=== PATIENT | female | born 2000 | race Caucasian/White ===

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

== ENCOUNTER 2020-03-07 15:44 | Emergency (ER) | payer OTHER ==
[2020-03-07 16:15] LABS: BASOPHILS # (AUTO) 0.1 10^3/uL (0.0-0.1); BASOPHILS % (AUTO) 0.8 %; EOSINOPHILS # (AUTO) 0.1 10^3/uL (0.0-0.7); HGB - HEMOGLOBIN 14.2 g/dL (12.0-16.0); LYMPHOCYTES # (AUTO) 2.4 10^3/uL (1.5-3.5); LYMPHOCYTES % (AUTO) 27.4 %; MEAN CORPUSCULAR HEMOGLOBIN 30.6 pg (27.0-31.0); MEAN CORPUSCULAR HGB CONC 34.5 g/dL (32.0-36.0); MEAN CORPUSCULAR VOLUME 88.6 fL (81.0-99.0); MEAN PLATELET VOLUME 8.9 fL (7.9-10.8); MONOCYTES # (AUTO) 0.6 10^3/uL (0.0-1.0); MONOCYTES % (AUTO) 7.3 %; NEUTROPHILS # (AUTO) 5.6 10^3/uL (1.5-6.6); NEUTROPHILS % (AUTO) 63.2 %; PLT - PLATELET COUNT 319 10^3/uL (130-450); RED BLOOD COUNT 4.64 10^6/uL (4.20-5.40); RED CELL DISTRIBUTION WIDTH 12.3 % (12.0-15.0); WHITE BLOOD COUNT 8.8 x10^3/uL (4.8-10.8)
[2020-03-07] MEDS ORDERED: SODIUM CHLORIDE 0.9% 1,000 ML IV ONE ×2 (16:17→20:02)
[2020-03-07] MEDS ORDERED: ONDANSETRON 4 MG/2 ML VIAL IVP STA ×2 (16:17→20:00)
[2020-03-07] MEDS ORDERED: MORPHINE 2 MG/ML CARPUJECT IVP STA (16:17)
[2020-03-07 16:29] LABS: ALBUMIN 4.3 g/dL (3.2-5.5); ALBUMIN/GLOBULIN RATIO 1.3 (1.0-2.2); BILIRUBIN,TOTAL 0.6 mg/dL (0.2-1.0); CALCIUM 9.1 mg/dL (8.5-10.3); CREATININE 0.7 mg/dL (0.4-1.0); TOTAL PROTEIN 7.5 g/dL (6.7-8.2)
[2020-03-07 16:30] LABS: BILIRUBIN,URINE NEGATIVE (NEGATIVE); GLUCOSE, URINE (UA) NEGATIVE (NEGATIVE); KETONES,URINE (UA) NEGATIVE (NEGATIVE); LEUKOCYTE ESTERASE, URINE NEGATIVE (NEGATIVE); NITRITE,URINE NEGATIVE (NEGATIVE); OCCULT BLOOD,URINE MODERATE (NEGATIVE); PROTEIN,URINE NEGATIVE (NEGATIVE); UROBILINOGEN,URINE 0.2 (NORMAL) E.U./dL (NORMAL)
[2020-03-07 16:33] LABS: CLARITY,URINE CLEAR (CLEAR)
[2020-03-07 16:41] LABS: BACTERIA,URINE Rare /HPF (None Seen); HCG UR QUAL NEGATIVE; SQUAMOUS EPITHELIAL CELL,UR MANY Squamous (<= Few)
--- NOTE | 2020-03-07 16:45 | ED Physician Documentation ---
History of Present Illness - Stated complaint Stated Complaint: ABD PX, VOMITING, FEVER - Chief complaint Chief Complaint: Abd Pain - History obtained from History obtained from: Patient - History of Present Illness Timing: Yesterday Pain level max: 9 Pain level now: 9 - Additonal information Additional information: 19-year-old female presents the emergency department with right-sided lower abdominal/pelvic pain. Started yesterday and has continually worsened. Worse with movement and better with rest. Has not taken anything for the pain. No fever. Is having vaginal spotting. LMP was approximately 5 weeks ago. She states that she does have irregular menses. She is not currently on control. She is sexually active. No fevers. No nausea or vomiting. 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 HEENT: None Psych: None Musculoskeletal: None Derm: None - Past Surgical History Past Surgical History: No - Present Medications Home Medications: Ambulatory Orders Medication Instructions Recorded Confirmed HYDROcod/ACETAM 5/325 [Vicodin 1 - 2 ea PO Q6H PRN 12/14/13 12/14/13 5/325] SUMAtriptan [Imitrex] 25 mg PO DAILY PRN 12/14/13 12/14/13 HYDROcod/ACETAM 5/325 [[place] 5/325] 1 - 2 ea PO Q6H PRN #15 tablet 12/15/15 LORazepam [Ativan] 0.5 mg PO Q6H PRN #15 tablet 01/09/16 Propranolol [Inderal] 10 mg PO DAILY 01/09/16 01/09/16 Hydrocodone/Acetaminophen 1 - 2 each PO Q6H PRN #10 tablet 10/02/18 [Hydrocodon-Acetaminophen 5-325] Ondansetron Odt [Zofran] 4 mg TL Q6H PRN #10 tablet 03/07/20 Oxycodone HCl 5 - 10 mg PO Q6H PRN #10 tablet 03/07/20 metroNIDAZOLE [Flagyl] 500 mg PO BID #14 tablet 03/07/20 - Allergies Allergies/Adverse Reactions: Allergies Allergy/AdvReac Type Severity Reaction Status Date / Time No Known Drug Allergies Allergy Verified 03/07/20 15:54 - Social History Does the pt smoke?: No Smoking Status: Never smoker Does the pt drink ETOH?: Yes Does the pt have substance abuse?: Yes - Immunizations Immunizations are current?: Yes - POLST Patient has POLST: No PD ED PE NORMAL - Vitals Vital signs reviewed: Yes - General General: Alert and oriented X 3, Well developed/nourished, Other (Appears uncomfortable) - HEENT HEENT: PERRL, Moist mucous membranes - Neck Neck: Supple, no meningeal sign - Cardiac Cardiac: RRR, No murmur, Strong equal pulses - Respiratory Respiratory: No respiratory distress, Clear bilaterally - Abdomen Abdomen: Soft, Non distended, Other (Diffusely tender to palpation across the lower abdomen. Mostly tender in the right lower quadrant. No peritoneal s igns.) - Female Female : Sp[place] Box present, Other (Initially declined, on reevaluation. She has mild cervical motion tenderness. Mild discharge. Clear.) - Back Back: No CVA TTP, No spinal TTP - Derm Derm: Warm and dry - Extremities Extremities: No edema, No calf tenderness / cord - Neuro Neuro: Alert and oriented X 3 - Psych Psych: Normal mood, Normal affect Results - Vitals Vitals: Vital Signs - 24 hr 03/07/20 03/07/20 03/07/20 15:54 16:38 18:00 Temperature 36.9 C 36.8 C Heart Rate 81 81 71 Respiratory 17 14 15 Rate Blood Pressure 130/97 H 107/77 112/76 O2 Saturation 98 100 100 03/07/20 03/07/20 03/07/20 19:17 20:01 20:43 Temperature Heart Rate 58 L Respiratory 17 18 17 Rate Blood Pressure 119/90 H O2 Saturation 100 03/07/20 03/07/20 21:10 21:15 Temperature Heart Rate 54 L Respiratory 17 17 Rate Blood Pressure 123/65 O2 Saturation 99 Oxygen O2 Source Room air - Labs Labs: Laboratory Tests 03/07/20 03/07/20 03/07/20 16:07 16:08 16:08 WBC 8.8 RBC 4.64 Hgb 14.2 Hct 41.1 MCV 88.6 MCH 30.6 MCHC 34.5 RDW 12.3 Plt Count 319 MPV 8.9 Neut # (Auto) 5.6 Lymph # (Auto) 2.4 [place] # (Auto) 0.6 Eos # (Auto) 0.1 Baso # (Auto) 0.1 Absolute Nucleated RBC 0.00 Nucleated RBC % 0.0 Sodium 139 Potassium 3.9 Chloride 107 Carbon Dioxide 23 Anion Gap 9.0 BUN 10 Creatinine 0.7 Estimated GFR (MDRD) 108 Glucose 90 Calcium 9.1 Total Bilirubin 0.6 AST 19 ALT 15 Alkaline Phosphatase 63 Total Protein 7.5 Albumin 4.3 Globulin 3.2 Albumin/Globulin Ratio 1.3 Lipase 31 HCG, Quant Urine Color YELLOW Urine Clarity CLEAR Urine pH 6.0 Ur Specific [place] 1.015 Urine Protein NEGATIVE Urine Glucose (UA) NEGATIVE Urine Ketones NEGATIVE Urine Occult Blood MODERATE H Urine Nitrite NEGATIVE Urine Bilirubin NEGATIVE Urine Urobilinogen 0.2 (NORMAL) Ur Leukocyte Esterase NEGATIVE Urine RBC 6-10 H Urine WBC 4-5 Ur Squamous Epith Cells MANY Squamous H Urine Bacteria Rare Ur Microscopic Review INDICATED Urine Culture Comments NOT INDICATED Urine HCG, Qual NEGATIVE C. glabrata (PCR) C. krusei (PCR) Tricia species DNA T. vaginalis (PCR) Bact Vaginosis (PCR) 03/07/20 03/07/20 16:09 19:05 WBC RBC Hgb Hct MCV MCH MCHC RDW Plt Count MPV Neut # (Auto) Lymph # (Auto) [place] # (Auto) Eos # (Auto) Baso # (Auto) Absolute Nucleated RBC Nucleated RBC % Sodium Potassium Chloride Carbon Dioxide Anion Gap BUN Creatinine Estimated GFR (MDRD) Glucose Calcium Total Bilirubin AST ALT Alkaline Phosphatase Total Protein Albumin Globulin Albumin/Globulin Ratio Lipase HCG, Quant < 0.60 Urine Color Urine Clarity Urine pH Ur Specific Caret Urine Protein Urine Glucose (UA) Urine Ketones Urine Occult Blood Urine Nitrite Urine Bilirubin Urine Urobilinogen Ur Leukocyte Esterase Urine RBC Urine WBC Ur Squamous Epith Cells Urine Bacteria Ur Microscopic Review Urine Culture Comments Urine HCG, Qual C. glabrata (PCR) NEGATIVE C. krusei (PCR) NEGATIVE Tricia species DNA NEGATIVE T. vaginalis (PCR) NEGATIVE Bact Vaginosis (PCR) NEGATIVE - Rads (name of study) Pelvic ultrasound Radiology: Prelim report reviewed, EMP read contemporaneously, See rad report (Normal) CT abdomen pelvis Radiology: Prelim report reviewed, EMP read contemporaneously, See rad report (Normal) PD MEDICAL DECISION MAKING - ED course Complexity details: reviewed results, re-evaluated patient, considered differential, d/w patient ED course: Unclear etiology of the patient's symptoms. Given Rocephin and azithromycin for possible gonorrhea and/or chlamydia. If her chlamydia is positive, I would consider giving her a 14-day course of doxycycline. Also given Flagyl for possible bacterial vaginitis. These test results will not be immediately available tonight, nor will be gonorrhea and Chlamydia testing. No acute findings on ultrasound. No evidence of ovarian torsion. Normal CT of the abdomen pelvis. We will have her follow-up closely with her doctor for further care. Pain well controlled. Patient counseled regarding signs and symptoms for which I believe and urgent re-evaluation would be necessary. Patient with good understanding of and agreement to plan and is comfortable going home at this time This document was made in part using voice recognition software. While efforts are made to proofread this document, sound alike and grammatical errors may occur. Departure - Departure Disposition: 01 Home, Self Care Clinical Impression: Pelvic pain Vaginitis Qualifiers: Chronicity: acute Qualified Code(s): N76.0 - Acute vaginitis Abdominal pain Qualifiers: Abdominal location: unspecified location Qualified Code(s): R10.9 - Unspecified abdominal pain Condition: Good Instructions: ED Pelvic Pain [facility]O, ED Vaginosis Bacterial Follow-Up: VERONICA ST [Primary Care Provider] - Within 1 week Prescriptions: metroNIDAZOLE [Flagyl] 500 mg PO BID #14 tablet Ondansetron Odt [Zofran] 4 mg TL Q6H PRN #10 tablet PRN Reason: Nausea / Vomiting Oxycodone HCl 5 - 10 mg PO Q6H PRN #10 tablet PRN Reason: pain Comments: Take all antibiotics until gone. Return if you worsen. Follow-up with your doctor for further care. Discharge Date/Time: 03/07/20 21:25
--- NOTE | 2020-03-07 17:47 | Ultrasound Report ---
Reason: pelvic pain, R Procedure Date: 03/07/2020 Accession Number: [id number] / [id number] Procedure: US - Pelvic w/Transvag+Doppler Comp CPT Code: Final Report FULL RESULT: EXAM: PELVIC ULTRASOUND WITH DOPPLERS CLINICAL HISTORY: Pelvic pain, left greater than right. COMPARISON: ABDOMEN/PELVIS W/ 10/02/2018 8:35 PM TECHNIQUE: Realtime transabdominal imaging performed to identify the uterus and adnexa and as an overview of other pelvic structures, with static image documentation. Transvaginal scanning refused. Color flow imaging and Doppler spectral analysis was performed to evaluate blood flow to the ovaries given pelvic pain and clinical concern for ovarian torsion. FINDINGS: Uterus: 6.5 x 2.8 x 4.6 cm, volume 44.1 cc. Anteverted position. Normal overall size and echotexture. Masses: None. Endometrium: 5 mm. Normal. Cervix: Unremarkable. Right Ovary: 3.8 x 1.9 x 1.6 cm, volume 6.2 cc. Normal echotexture. Arterial and venous blood flow are present. PSV 11.9 cm/sec. RI 0.6. Adnexa are unremarkable. Left Ovary: 3.3 x 1.4 x 2.3 cm, volume 5.4 cc. Normal echotexture. Arterial and venous blood flow are present. PSV 13.3 cm/sec. RI 0.7. Adnexa are unremarkable. Free Fluid: None. Other: None. IMPRESSION: 1. Normal transabdominal pelvic ultrasound. 2. Arterial and venous blood flow are present to the ovaries bilaterally. RADIA
[2020-03-07] MEDS ORDERED: KETOROLAC 30 MG/ML VIAL IVP STA (17:54)
[2020-03-07] MEDS ORDERED: IOVERSOL 320 100 ML VIAL IVP ONE ×2 (18:11→18:26)
--- NOTE | 2020-03-07 18:39 | CT Report ---
Reason: RLQ abd pain Procedure Date: 03/07/2020 Accession Number: [id number] / [id number] Procedure: CT - Abdomen/Pelvis W CPT Code: Final Report FULL RESULT: EXAM: CT ABDOMEN AND PELVIS EXAM DATE: 03/07/2020 06:24 PM. CLINICAL HISTORY: RLQ abd pain. COMPARISONS: ABDOMEN/PELVIS W/ 10/02/2018 8:35 PM. TECHNIQUE: Routine helical CT imaging was performed through the abdomen and pelvis. IV contrast: OPTIRAY 320. Enteric contrast: No. Reconstructions: Coronal and sagittal. In accordance with CT protocol optimization, one or more of the following dose reduction techniques were utilized for this exam: automated exposure control, adjustment of mA and/or KV based on patient size, or use of iterative reconstructive technique. FINDINGS: Lung Bases: Unremarkable. Liver: Periportal edema with no focal lesions. Gallbladder/Bile Ducts: Unremarkable. Spleen: Normal. Pancreas: Normal. Adrenal Glands: Normal. Kidneys: Normal. No masses or hydronephrosis. Peritoneal Cavity/Bowel: Normal. No free fluid, free air or adenopathy. No masses or acute inflammatory process. The appendix images normally.. Pelvic Organs: Normal. The bladder and visualized pelvic organs are within normal limits. Vasculature: No aneurysms or other significant abnormality. Bones: No significant abnormality. Other: None. IMPRESSION: 1. The appendix images normally. 2. No bowel obstruction or inflammatory process associated with the bowel. 3. Periportal edema is nonspecific but can be seen in the setting of acute hepatitis. Correlate clinically. RADIA
[2020-03-07] MEDS ORDERED: HYDROmorphone 1 MG/ML CARPUJECT IVP STA (18:53)
[2020-03-07] MEDS ORDERED: cefTRIAXone 1 GM VIAL IVP STA (19:33)
[2020-03-07] MEDS ORDERED: AZITHROMYCIN 250 MG TABLET PO STA (19:33)
[2020-03-07] MEDS ORDERED: metroNIDAZOLE 250 MG TABLET PO STA (19:33)
[2020-03-07] MEDS ORDERED: oxyCODONE 5 MG TABLET PO STA (20:11)
[2020-03-07 21:11] VITALS: BP 123/65
[2020-03-07 21:18] LABS: CANDIDA GROUP DNA NEGATIVE (NEGATIVE); CANDIDA KRUSEI DNA NEGATIVE (NEGATIVE); TRICHOMONAS VAGINALIS DNA NEGATIVE (NEGATIVE)
[2020-03-07 22:45] LABS: TRICHOMONAS VAGINALIS DNA NEGATIVE (NEGATIVE)
== END 2020-03-07 21:25 | disposition home or self-care (01) ==
LOC: ED 15:44
DX: R10.2 Pelvic and perineal pain (principal); N76.0 Acute vaginitis; R10.9 Unspecified abdominal pain
CPT/HCPCS: 36415; 74177; 76830; 76856; 80053; 81001; 81025; 83690; 84702; 85025; 87481; 87491; 87591; 87661; 87801; 93975; 96361; 96374; 96375; 96376; 99284; A9270; J1170; Q9967; 81003; 87086; 87210

== ENCOUNTER 2021-02-12 17:14 | Emergency (ER) | payer OTHER ==
--- OUTSIDE RECORDS SUMMARY | 2021-02-12 17:17 | EXTERNAL MEDICAL SUMMARY RPT | Continuity of Care Document ---
:2000 Demographics Phone Unavailable Preferred Language Unknown Marital Status Unknown Bahai Affiliation Unknown Race Unknown Ethnic Group Unknown Author Organization [place] Address [address] [place] [address] Phone Care Team Providers Name Role Phone PA-C Unavailable Unavailable Problems date description facility [id number] Abdominal pain, unspecified site All [id number] Acute abdominal pain All [id number] Alcohol intake All [id number] Alcohol use All [id number] Details of drug misuse behavior All [id number] Never smoker All [id number] Tobacco smoking status NHIS All 20210212 Unspecified abdominal pain All Medications date description facility [id number] RIZATRIPTAN BENZOATE All 20210212 RIZATRIPTAN BENZOATE All Vital Signs date measurement value source 20210212 BMI 22.17 kg/m2 20210212 BP_diastolic 85 mm[Hg] [id number] BP_systolic 145 mm[Hg] 86521770 heart_rate 101 /min 20210212 height_metric 157.48 cm 20210212 height_standard 62 in 20210212 respiration_rate 17 /min 20210212 temperature_metric 36.44 C 20210212 temperature_standard 97.6 F [id number] weight_metric 54.79 kg [id number] weight_standard 120.8 lb Social History date description facility [id number]
[2021-02-12 17:34] LABS: BILIRUBIN,URINE NEGATIVE (NEGATIVE); GLUCOSE, URINE (UA) NEGATIVE (NEGATIVE); KETONES,URINE (UA) NEGATIVE (NEGATIVE); LEUKOCYTE ESTERASE, URINE NEGATIVE (NEGATIVE); NITRITE,URINE NEGATIVE (NEGATIVE); OCCULT BLOOD,URINE NEGATIVE (NEGATIVE); PROTEIN,URINE NEGATIVE (NEGATIVE); UROBILINOGEN,URINE 0.2 (NORMAL) E.U./dL (NORMAL)
--- OUTSIDE RECORDS SUMMARY | 2021-02-12 17:34 | EXTERNAL MEDICAL SUMMARY RPT | Continuity of Care Document ---
:2000 Demographics Phone Unavailable Preferred Language Unknown Marital Status Unknown Advent Affiliation Unknown Race Unknown Ethnic Group Unknown Author Organization [facility] Address [address] [place] [address] Phone Care Team Providers Name Role Phone LIZZ, Kole Juarez, Unavailable Unavailable Problems date description facility [id number] Abdominal pain, unspecified site All [id number] Acute abdominal pain All [id number] Alcohol intake All [id number] Alcohol use All [id number] Details of drug misuse behavior All [id number] Never smoker All [id number] Tobacco smoking status NHIS All 20210212 Unspecified abdominal pain All Medications date description facility 20210212 R[facility]ATRIPT[facility] BENZOATE All 20210212 RIZATRIPT[facility] BENZOATE All Vital Signs date measurement value source 20210212 BMI 22.17 kg/m2 [id number] BP_diastolic 85 mm[Hg] 30155028 BP_systolic 145 mm[Hg] 93283533 heart_rate 101 /min [id number] height_metric 157.48 cm 20210212 height_standard 62 in [id number] respiration_rate 17 /min 20210212 temperature_metric 36.44 C 20210212 temperature_standard 97.6 F 20210212 weight_metric 54.79 kg 23828093 weight_standard 120.8 lb Social History date description facility [id number]
[2021-02-12 17:35] LABS: CLARITY,URINE CLOUDY (CLEAR); HCG UR QUAL POSITIVE
[2021-02-12 17:41] LABS: RBC,URINE 0-5 /HPF (0-5); SQUAMOUS EPITHELIAL CELL,UR RARE Squamous (<= Few); WBC,URINE 0-3 /HPF (0-5)
[2021-02-12 17:42] LABS: AMORPHOUS SEDIMENT,UR Marked /LPF; BACTERIA,URINE None Seen /HPF (None Seen)
[2021-02-12 17:49] LABS: BASOPHILS # (AUTO) 0.1 10^3/uL (0.0-0.1); BASOPHILS % (AUTO) 0.6 %; EOSINOPHILS # (AUTO) 0.1 10^3/uL (0.0-0.7); EOSINOPHILS % (AUTO) 0.8 %; HCT - HEMATOCRIT 41.3 % (37.0-47.0); LYMPHOCYTES # (AUTO) 2.5 10^3/uL (1.5-3.5); LYMPHOCYTES % (AUTO) 26.8 %; MEAN CORPUSCULAR HGB CONC 33.9 g/dL (32.0-36.0); MEAN CORPUSCULAR VOLUME 91.6 fL (81.0-99.0); MEAN PLATELET VOLUME 8.8 fL (7.9-10.8); MONOCYTES # (AUTO) 0.9 10^3/uL (0.0-1.0); MONOCYTES % (AUTO) 9.9 %; NEUTROPHILS # (AUTO) 5.8 10^3/uL (1.5-6.6); NEUTROPHILS % (AUTO) 61.6 %; PLT - PLATELET COUNT 301 10^3/uL (130-450); RED BLOOD COUNT 4.51 10^6/uL (4.20-5.40); RED CELL DISTRIBUTION WIDTH 11.9 % (12.0-15.0); WHITE BLOOD COUNT 9.5 x10^3/uL (4.8-10.8)
[2021-02-12 18:02] LABS: ALBUMIN 4.3 g/dL (3.2-5.5); ALBUMIN/GLOBULIN RATIO 1.4 (1.0-2.2); BILIRUBIN,TOTAL 0.7 mg/dL (0.2-1.0); CALCIUM 9.3 mg/dL (8.5-10.3); CREATININE 0.6 mg/dL (0.4-1.0); POTASSIUM 3.6 mmol/L (3.5-5.0); TOTAL PROTEIN 7.4 g/dL (6.7-8.2)
--- NOTE | 2021-02-12 18:32 | ED Physician Documentation ---
History of Present Illness - Stated complaint Stated Complaint: CRAMPING - Chief complaint Chief Complaint: Abd Pain - History obtained from History obtained from: Patient - Additonal information Additional information: Patient comes emergency department chief complaint of lower abdominal cramping, worse on the right side, for the last few days. Patient states that she gets a sharp pain that she feels more on the right than the left and then it seems to pulsate after that. Patient states that her last period was sometime in December, though she is not sure exactly when. She is known to be and has had a positive test. She denies any fevers or chills. She has been nauseated and vomiting. No dysuria. She has some midline back pain which she has noticed over the last few days, as well. No vaginal bleeding. She has had more of her normal discharge but otherwise no unusual discharge. Patient states she is otherwise healthy and this is her first . She has not yet had an ultrasound. Review of Systems Ten Systems: 10 systems reviewed and negative Constitutional: reports: Reviewed and negative Eyes: reports: Reviewed and negative Ears: reports: Reviewed and negative Nose: reports: Reviewed and negative Throat: reports: Reviewed and negative Cardiac: reports: Reviewed and negative Respiratory: reports: Reviewed and negative GI: reports: Abdominal Pain, Nausea, Vomiting : reports: Reviewed and negative Skin: reports: Reviewed and negative Musculoskeletal: reports: Reviewed and negative Neurologic: reports: Reviewed and negative Psychiatric: reports: Reviewed and negative Endocrine: reports: Reviewed and negative Immunocompromised: reports: Reviewed and negative PD PAST MEDICAL HISTORY - Past Medical History Cardiovascular: None Respiratory: None Neuro: Migraines Endocrine/Autoimmune: None GI: None 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 : None HEENT: None Psych: None Musculoskeletal: None Derm: None - Past Surgical History Past Surgical History: No - Present Medications Home Medications: Ambulatory Orders Medication Instructions Recorded Confirmed HYDROcod/ACETAM 5/325 [Vicodin 1 - 2 ea PO Q6H PRN 12/14/13 12/14/13 5/325] SUMAtriptan [Imitrex] 25 mg PO DAILY PRN 12/14/13 12/14/13 HYDROcod/ACETAM 5/325 [[place] 5/325] 1 - 2 ea PO Q6H PRN #15 tablet 12/15/15 LORazepam [Ativan] 0.5 mg PO Q6H PRN #15 tablet 01/09/16 Propranolol [Inderal] 10 mg PO DAILY 01/09/16 01/09/16 Hydrocodone/Acetaminophen 1 - 2 each PO Q6H PRN #10 tablet 10/02/18 [Hydrocodon-Acetaminophen 5-325] Ondansetron Odt [Zofran] 4 mg TL Q6H PRN #10 tablet 03/07/20 Oxycodone HCl 5 - 10 mg PO Q6H PRN #10 tablet 03/07/20 metroNIDAZOLE [Flagyl] 500 mg PO BID #14 tablet 03/07/20 Ondansetron Odt [Zofran] 4 mg TL Q6H PRN #10 tablet 02/12/21 168/Iron/Folic/Omega3 1 each PO DAILY #30 02/12/21 [One-A-Day -1 Softgel] - Allergies Allergies/Adverse Reactions: Allergies Allergy/AdvReac Type Severity Reaction Status Date / Time No Known Drug Allergies Allergy Verified 03/07/20 15:54 - Social History Does the pt smoke?: No Smoking Status: Never smoker Does the pt drink ETOH?: Yes Does the pt have substance abuse?: Yes - Immunizations Immunizations are current?: Yes - POLST Patient has POLST: No PD ED PE NORMAL - Vitals Vital signs reviewed: Yes - General General: Alert and oriented X 3, No acute distress - HEENT HEENT: Atraumatic, PERRL, EOMI, Moist mucous membranes - Neck Neck: Supple, no meningeal sign - Cardiac Cardiac: RRR, No murmur, Strong equal pulses - Respiratory Respiratory: No respiratory distress, Clear bilaterally - Abdomen Abdomen: Soft, Non distended, Other (Mild right pelvic tenderness. No tenderness at McBurney's point. 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 Moderate amount of white nonmalodorous discharge in vaginal canal. No vaginal or cervical lesions. No external lesions. No vaginal bleeding. No cervical motion tenderness or left adnexal tenderness. Mild right adnexal tenderness noted. No mass.) - Back Back: No CVA TTP, No spinal TTP - Derm Derm: Normal color, Warm and dry, No rash - Extremities Extremities: No deformity, No edema, No calf tenderness / cord - Neuro Neuro: Alert and oriented X 3, policy intern 2-12 intact, Normal speech, Other (Otherwise grossly normal.) - Psych Psych: Normal mood, Normal affect Results - Vitals Vitals: Vital Signs - 24 hr 02/12/21 02/12/21 02/12/21 17:18 19:08 19:16 Temperature 36.5 C Heart Rate 82 65 68 Respiratory 16 15 15 Rate Blood Pressure 119/52 L 115/76 O2 Saturation 100 100 98 02/12/21 02/12/21 20:28 21:11 Temperature Heart Rate 70 68 Respiratory 15 16 Rate Blood Pressure 107/72 O2 Saturation 99 99 Oxygen O2 Source Room air - Labs Labs: Laboratory Tests 02/12/21 02/12/21 02/12/21 17:28 17:33 17:33 WBC 9.5 RBC 4.51 Hgb 14.0 Hct 41.3 MCV 91.6 MCH 31.0 MCHC 33.9 RDW 11.9 L Plt Count 301 MPV 8.8 Neut # (Auto) 5.8 Lymph # (Auto) 2.5 [place] # (Auto) 0.9 Eos # (Auto) 0.1 Baso # (Auto) 0.1 Absolute Nucleated RBC 0.00 Nucleated RBC % 0.0 Sodium 134 L Potassium 3.6 Chloride 99 L Carbon Dioxide 26 Anion Gap 9.0 BUN 8 Creatinine 0.6 Estimated GFR (MDRD) 127 Glucose 88 Calcium 9.3 Total Bilirubin 0.7 AST 20 ALT 15 Alkaline Phosphatase 64 Total Protein 7.4 Albumin 4.3 Globulin 3.1 Albumin/Globulin Ratio 1.4 Lipase 26 HCG, Quant Urine Color YELLOW Urine Clarity CLOUDY Urine pH 8.0 H Ur Specific [place] 1.020 Urine Protein NEGATIVE Urine Glucose (UA) NEGATIVE Urine Ketones NEGATIVE Urine Occult Blood NEGATIVE Urine Nitrite NEGATIVE Urine Bilirubin NEGATIVE Urine Urobilinogen 0.2 (NORMAL) Ur Leukocyte Esterase NEGATIVE Urine RBC 0-5 Urine WBC 0-3 Ur Squamous Epith Cells RARE Squamous Amorphous Sediment Marked Urine Bacteria None Seen Ur Microscopic Review INDICATED Urine Culture Comments NOT INDICATED Urine HCG, Qual POSITIVE Chlam trachomat DNA PCR N.gonorrhoeae DNA (PCR) T. vaginalis (PCR) Blood Type 02/12/21 02/12/21 02/12/21 17:33 17:40 18:30 WBC RBC Hgb Hct MCV MCH MCHC RDW Plt Count MPV Neut # (Auto) Lymph # (Auto) [place] # (Auto) Eos # (Auto) Baso # (Auto) Absolute Nucleated RBC Nucleated RBC % Sodium Potassium Chloride Carbon Dioxide Anion Gap BUN Creatinine Estimated GFR (MDRD) Glucose Calcium Total Bilirubin AST ALT Alkaline Phosphatase Total Protein Albumin Globulin Albumin/Globulin Ratio Lipase HCG, Quant 94608.00 Urine Color Urine Clarity Urine pH Ur Specific [place] Urine Protein Urine Glucose (UA) Urine Ketones Urine Occult Blood Urine Nitrite Urine Bilirubin Urine Urobilinogen Ur Leukocyte Esterase Urine RBC Urine WBC Ur Squamous Epith Cells Amorphous Sediment Urine Bacteria Ur Microscopic Review Urine Culture Comments Urine HCG, Qual Chlam trachomat DNA PCR NEGATIVE N.gonorrhoeae DNA (PCR) NEGATIVE T. vaginalis (PCR) NEGATIVE Blood Type O POSITIVE - Rads (name of study) OB US Radiology: Final report received, EMP read indepedently, See rad report (5w5d fetus with gestational sac; no heartbeat appreciated) PD MEDICAL DECISION MAKING - ED course Complexity details: reviewed results, re-evaluated patient, considered differential, d/w patient ED course: The patient's exam overall was fairly reassuring, but I did feel she should be worked up for her pelvic pain in consideration of early . Urine test was positive. I did also obtain urinalysis, quantitative hCG, and OB ultrasound. hCG seemed appropriate at around 24,000. OB ultrasound showed a 5-week 5-day size fetus and sac within the uterus; however, heartbeat was unable to be visualized. Radiologist did note that there is perhaps the e nidia age of the fetus that is the reason for the heartbeat not being visible. I discussed the findings with the patient and the possibility of miscarriage. We have discussed that the patient will need to set up expedited follow-up when the clinic opens and follow-up either with her primary doctor or with OB, better yet. Patient expresses understanding. We have discussed the usual indications for return. Departure - Departure Disposition: 01 Home, Self Care Clinical Impression: First trimester , Corpus luteum cyst of right ovary Condition: Stable Instructions: ED Care Prescriptions: 168/Iron/Folic/Omega3 [One-A-Day -1 Softgel] 1 each PO DAILY #30 Ondansetron Odt [Zofran] 4 mg TL Q6H PRN #10 tablet PRN Reason: Nausea / Vomiting Comments: Your ultrasound shows that is over 5 weeks in size. There is also a related cyst of the right ovary, which may be causing your pain. Your is in the uterus, but at this time, a heart rate has not been detected on the fetus. It is possible that this is because this is a fairly early , but it is a finding that should be followed up very closely, as the heartbeat should begin to be detectable At this stage or slightly earlier. Please make an appointment with your OB specialist to be seen in the next week for reevaluation. If you begin to have vaginal bleeding, it is most likely a sign that a miscarriage is occurring. In the meantime, please take the Zofran for nausea and the vitamins as prescribed. Discharge Date/Time: 02/12/21 21:22
--- NOTE | 2021-02-12 20:12 | Ultrasound Report ---
PROCEDURE: OB First Trimester INDICATIONS: early ; right lower pain OUTSIDE/PRIOR DATING DATA: Last menstrual period (LMP): Unsure. First dating scan (date and location): 02/12/2021. Estimated date of delivery (MOLLY) from first dating scan: 10/10/2021. TECHNIQUE: Real-time scanning was performed of the fetus and maternal pelvic organs, with image documentation. COMPARISON: None. FINDINGS: Embryo: There is an intrauterine gestational sac with a yolk sac and small pole identified. Th e mean gestational sac diameter measures up to 1.08 cm corresponding to a gestational age of 5 weeks 6 days. The crown-rump length measures up to 0.23 cm corresponding to gestational age of 5 weeks 5 da ys. No discrete heart motion identified, with evaluation limited by small size of the drew e. No discrete. Gestational subchorionic hematoma identified. Measurement variability in dating: +/- 4 weeks by LMP, +/- 7 days by mean sac diameter (use before 6 weeks gestation if crown-rump length not able to be measured), +/- 5 days by crown-rump length (6-12 weeks gestation). Maternal organs: Ovaries measure up to 2.9 x 1.8 x 2.5 cm on the right and 2.2 x 1.5 x 1.2 cm on the left. No adnexal masses identified. There is a thick-walled cyst in the right ovary measuring up to 1.6 cm compatible with a corpus luteal cyst. IMPRESSION: 1. Single intrauterine with a calculated gestational age of 5 weeks 5 days by crown-rump le ngth. No heart motion is identified which may be due to early gestational age. Recommend contin ued clinical follow-up and a short-term repeat study if indicated. 2. Probable corpus luteal cyst in the right ovary. Reviewed by: Henry Gallegos MD on 02/12/2021 8:11 PM PDT Approved by: Henry Gallegos MD on 02/12/2021 8:11 PM PDT Station ID: [id number]
[2021-02-12 20:29] VITALS: BP 107/72
[2021-02-12 22:25] LABS: CHLAMYDIA TRACHOMATIS DNA NEGATIVE (NEGATIVE); NEISSERIA GONORRHOEAE DNA NEGATIVE (NEGATIVE); TRICHOMONAS VAGINALIS DNA NEGATIVE (NEGATIVE)
--- NOTE | 2021-02-12 22:33 | Ultrasound Report ---
PROCEDURE: OB Transvaginal INDICATIONS: early ; right lower quadrant pain OUTSIDE/PRIOR DATING DATA: Last menstrual period (LMP): Unsure. First dating scan (date and location): 02/12/2021. Estimated date of delivery (MOLLY) from first dating scan: 10/10/2021. TECHNIQUE: Real-time scanning was performed of the fetus and maternal pelvic organs, with image documentation. COMPARISON: None. FINDINGS: Embryo: There is an intrauterine gestational sac with a yolk sac and small pole identified. Th e mean gestational sac diameter measures up to 1.08 cm corresponding to a gestational age of 5 weeks 6 days. The crown-rump length measures up to 0.23 cm corresponding to gestational age of 5 weeks 5 da ys. No discrete heart motion identified, with evaluation limited by small size of the drew e. No discrete. Gestational subchorionic hematoma identified. Measurement variability in dating: +/- 4 weeks by LMP, +/- 7 days by mean sac diameter (use before 6 weeks gestation if crown-rump length not able to be measured), +/- 5 days by crown-rump length (6-12 weeks gestation). Maternal organs: Ovaries measure up to 2.9 x 1.8 x 2.5 cm on the right and 2.2 x 1.5 x 1.2 cm on the left. No adnexal masses identified. There is a thick-walled cyst in the right ovary measuring up to 1.6 cm compatible with a corpus luteal cyst. IMPRESSION: 1. Single intrauterine with a calculated gestational age of 5 weeks 5 days by crown-rump le ngth. No heart motion is identified which may be due to early gestational age. Recommend contin ued clinical follow-up and a short-term repeat study if indicated. 2. Probable corpus luteal cyst in the right ovary. Reviewed by: Henry Gallegos MD on 02/12/2021 10:32 PM PDT Approved by: Henry Gallegos MD on 02/12/2021 10:32 PM PDT Station ID: [id number]
== END 2021-02-12 21:22 | disposition home or self-care (01) ==
LOC: ED 17:14
DX: O34.81 Maternal care for other abnormalities of pelvic organs, first trimester (principal); N83.11 Corpus luteum cyst of right ovary; Z3A.01 Less than 8 weeks gestation of pregnancy
CPT/HCPCS: 36415; 80053; 81001; 81003; 81025; 83690; 84702; 85025; 86900; 86901; 87086; 87491; 87591; 87661; 99284

== ENCOUNTER 2021-03-06 13:25 | Emergency (ER) | payer OTHER ==
--- OUTSIDE RECORDS SUMMARY | 2021-03-06 13:29 | EXTERNAL MEDICAL SUMMARY RPT | Continuity of Care Document ---
:2000 Demographics Phone Unavailable Preferred Language Unknown Marital Status Unknown Mandaeism Affiliation Unknown Race Unknown Ethnic Group Unknown Author Organization [facility] Address [address] [place] [address] Phone Care Team Providers Name Role Phone PA-C Unavailable Unavailable Problems date description facility 20210212 Unspecified abdominal pain All 20210212 Tobacco smoking status NHIS All 20210212 Never smoker All 20210212 Details of drug misuse behavior All 20210212 Alcohol use All 20210212 Alcohol intake All 20210212 Acute abdominal pain All 20210212 Abdominal pain, unspecified site All Medications date description facility 20210212 RIZATRIPTAN BENZOATE All 20210212 RIZATRIPTAN BENZOATE All Vital Signs date measurement value source 20210212 weight_standard 120.8 lb 20210212 weight_metric 54.79 kg 20210212 temperature_standard 97.6 F 20210212 temperature_metric 36.44 C 20210212 respiration_rate 17 /min 20210212 height_standard 62 in 20210212 height_metric 157.48 cm 20210212 heart_rate 101 /min 20210212 BP_systolic 145 mm[Hg] 66501464 BP_diastolic 85 mm[Hg] 20210212 BMI 22.17 kg/m2 Social History date description facility [id number]
--- OUTSIDE RECORDS SUMMARY | 2021-03-06 13:33 | EXTERNAL MEDICAL SUMMARY RPT | Continuity of Care Document ---
:2000 Demographics Phone Unavailable Preferred Language Unknown Marital Status Unknown Christian Affiliation Unknown Race Unknown Ethnic Group Unknown Author Organization [facility] Address [address] [place] [address] Phone Care Team Providers Name Role Phone LIZZ, Kole Juarez, Unavailable Unavailable Problems date description facility 20210212 Unspecified abdominal pain All 20210212 Tobacco smoking status NHIS All [id number] Never smoker All 44502667 Details of drug misuse behavior All 51805261 Alcohol use All 36127499 Alcohol intake All 21740273 Acute abdominal pain All 35705886 Abdominal pain, unspecified site All Medications date description facility 20210212 RIZATRIPTAN BENZOATE All 20210212 RIZATRIPTAN BENZOATE All Vital Signs date measurement value source 20210212 weight_standard 120.8 lb 20210212 weight_metric 54.79 kg 20210212 temperature_standard 97.6 F 20210212 temperature_metric 36.44 C 20210212 respiration_rate 17 /min 20210212 height_standard 62 in 20210212 height_metric 157.48 cm 51820549 heart_rate 101 /min 20210212 BP_systolic 145 mm[Hg] 23722576 BP_diastolic 85 mm[Hg] 20210212 BMI 22.17 kg/m2 Social History date description facility [id number]+0000
[2021-03-06] MEDS ORDERED: FOLIC ACID INJ 1 MG in SODIUM CHLORIDE 0.9% 1,000 ML IV STA (13:47)
[2021-03-06] MEDS ORDERED: LACTATED RINGERS 1,000 ML IV STA (13:47)
[2021-03-06] MEDS ORDERED: METOCLOPRAMIDE 10 MG/2 ML VIAL IVP STA (13:47)
[2021-03-06] MEDS ORDERED: THIAMINE INJ 100 MG in SODIUM CHLORIDE 0.9% 50 ML IV STA (13:47)
[2021-03-06] MEDS ORDERED: SODIUM CHLORIDE 0.9% 1,000 ML IV STA (13:47)
--- NOTE | 2021-03-06 13:48 | ED Physician Documentation ---
History of Present Illness - Stated complaint Stated Complaint: VOMITING - Chief complaint Chief Complaint: Neuro - History obtained from History obtained from: Patient - Additonal information Additional information: 20 yo G1 at 9 weeks gestation who presents with ongoing vomiting for the last 2 weeks. She was prescribed Zofran which is unhelpful. Despite that is vomiting every day. Starting yesterday she started to have dizzy spells and has passed out twice. She also had bloody flecks in the emesis today. She denies bleeding but she does have some mild pelvic pain. She was seen here at approximately 5 weeks gestation, ultrasound showed IUP at 5 weeks 5 days without heartbeat at that time. Review of Systems Constitutional: reports: Fatigue. denies: Fever, Chills Cardiac: denies: Chest pain / pressure, Palpitations Respiratory: denies: Dyspnea, Cough GI: reports: Nausea, Vomiting. 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 : None HEENT: None Psych: None Musculoskeletal: None Derm: None - Past Surgical History Past Surgical History: No - Present Medications Home Medications: Ambulatory Orders Medication Instructions Recorded Confirmed 168/Iron/Folic/Omega3 1 each PO DAILY #30 02/12/21 03/06/21 [One-A-Day -1 Softgel] Metoclopramide [Reglan] 10 mg PO Q6H PRN #20 tablet 03/06/21 - Allergies Allergies/Adverse Reactions: Allergies Allergy/AdvReac Type Severity Reaction Status Date / Time No Known Drug Allergies Allergy Verified 03/06/21 13:29 - Social History Does the pt smoke?: No Smoking Status: Never smoker Does the pt drink ETOH?: Yes Does the pt have substance abuse?: Yes - Immunizations Immunizations are current?: Yes - POLST Patient has POLST: No PD ED PE NORMAL - Vitals Vital signs reviewed: Yes - General General: Alert and oriented X 3, No acute distress - HEENT HEENT: PERRL, EOMI - Neck Neck: Supple, no meningeal sign, No bony TTP - Cardiac Cardiac: RRR, No murmur - Respiratory Respiratory: No respiratory distress, Clear bilaterally - Abdomen Abdomen: Normal bowel sounds, Soft, Non tender - Female Female : Other (Bedside ultrasound demonstrates single live intrauterine , HR 160, CRL = 8w3d) - Back Back: No CVA TTP, No spinal TTP - Derm Derm: Normal color, Warm and dry - Extremities Extremities: No edema, No calf tenderness / cord - Neuro Neuro: Alert and oriented X 3, Normal speech Results - Vitals Vitals: Vital Signs - 24 hr 03/06/21 03/06/21 03/06/21 13:30 14:04 14:30 Temperature 36.7 C Heart Rate 83 65 77 Respiratory 19 19 27 H Rate Blood Pressure 129/79 131/61 H 104/68 O2 Saturation 100 98 99 03/06/21 03/06/21 03/06/21 15:00 15:50 16:00 Temperature Heart Rate 63 69 68 Respiratory 16 16 18 Rate Blood Pressure 130/76 115/72 115/72 O2 Saturation 94 98 95 03/06/21 16:41 Temperature 36.9 C Heart Rate Respiratory Rate Blood Pressure O2 Saturation Oxygen O2 Source Room air - EKG (time done) 1348 Rate: Rate (enter#) (73) Rhythm: NSR [place]: Normal Intervals: Normal [place] QRS: Normal Ischemia: Normal ST segments Computer interpretation: Agree with computer - Labs Labs: Laboratory Tests 03/06/21 03/06/21 13:57 13:57 WBC 9.4 RBC 4.52 Hgb 14.2 Hct 40.7 MCV 90.0 MCH 31.4 H MCHC 34.9 RDW 11.6 L Plt Count 317 MPV 9.0 Neut # (Auto) 5.8 Lymph # (Auto) 2.2 [place] # (Auto) 0.7 Eos # (Auto) 0.7 Baso # (Auto) 0.1 Absolute Nucleated RBC 0.00 Nucleated RBC % 0.0 Sodium 136 Potassium 3.6 Chloride 102 Carbon Dioxide 22 Anion Gap 12.0 BUN 8 Creatinine 0.7 Estimated GFR (MDRD) 107 Glucose 99 Calcium 9.5 Magnesium 1.8 Total Bilirubin 0.7 AST 15 ALT 16 Alkaline Phosphatase 45 Total Protein 7.3 Albumin 4.3 Globulin 3.0 Albumin/Globulin Ratio 1.4 PD MEDICAL DECISION MAKING - ED course ED course: 20-year-old woman with syncope in associated with 2 weeks of vomiting without relief from Zofran. Presume given obvious IUP and no free fluid and lack of EKG findings of the syncope is just due to severe dehydration and she was feeling better and not feeling orthostatic after the administration of IV fluids. She also had significant relief of her nausea with IV Reglan. Departure - Departure Disposition: 01 Home, Self Care Clinical Impression: First trimester , Hyperemesis gravidarum Syncope Qualifiers: Syncope type: unspecified Qualified Code(s): R55 - Syncope and collapse Condition: Good Record reviewed to determine appropriate education?: Yes Instructions: ED Preg Morning Sickness Prescriptions: Metoclopramide [Reglan] 10 mg PO Q6H PRN #20 tablet PRN Reason: nausea or headache Comments: Follow-up with OB as scheduled. Return if worse. Forms: Activity restrictions Discharge Date/Time: 03/06/21 16:40
[2021-03-06 14:04] LABS: BASOPHILS # (AUTO) 0.1 10^3/uL (0.0-0.1); BASOPHILS % (AUTO) 0.6 %; EOSINOPHILS # (AUTO) 0.7 10^3/uL (0.0-0.7); EOSINOPHILS % (AUTO) 6.9 %; HCT - HEMATOCRIT 40.7 % (37.0-47.0); HGB - HEMOGLOBIN 14.2 g/dL (12.0-16.0); LYMPHOCYTES # (AUTO) 2.2 10^3/uL (1.5-3.5); LYMPHOCYTES % (AUTO) 23.5 %; MEAN CORPUSCULAR HEMOGLOBIN 31.4 pg (27.0-31.0); MEAN CORPUSCULAR HGB CONC 34.9 g/dL (32.0-36.0); MONOCYTES # (AUTO) 0.7 10^3/uL (0.0-1.0); NEUTROPHILS # (AUTO) 5.8 10^3/uL (1.5-6.6); NEUTROPHILS % (AUTO) 61.9 %; PLT - PLATELET COUNT 317 10^3/uL (130-450); RED BLOOD COUNT 4.52 10^6/uL (4.20-5.40); RED CELL DISTRIBUTION WIDTH 11.6 % (12.0-15.0); WHITE BLOOD COUNT 9.4 x10^3/uL (4.8-10.8)
[2021-03-06 14:14] LABS: ALBUMIN 4.3 g/dL (3.2-5.5); ALBUMIN/GLOBULIN RATIO 1.4 (1.0-2.2); BILIRUBIN,TOTAL 0.7 mg/dL (0.2-1.0); CALCIUM 9.5 mg/dL (8.5-10.3); CREATININE 0.7 mg/dL (0.4-1.0); MAGNESIUM 1.8 mg/dL (1.7-2.8); POTASSIUM 3.6 mmol/L (3.5-5.0); TOTAL PROTEIN 7.3 g/dL (6.7-8.2)
[2021-03-06 15:50] VITALS: BP 115/72
== END 2021-03-06 16:40 | disposition home or self-care (01) ==
LOC: ED 13:25
DX: O21.1 Hyperemesis gravidarum with metabolic disturbance (principal); O99.891 Other specified diseases and conditions complicating pregnancy; R55 Syncope and collapse; Z3A.09 9 weeks gestation of pregnancy
CPT/HCPCS: 36415; 80053; 83735; 85025; 93005; 96365; 96367; 96375; 99284; J2765; J3411; J7040; J7120

== ENCOUNTER 2021-04-09 08:00 | Outpatient (CLI) | payer OTHER ==
[2021-04-10 20:42] LABS: CHLAMYDIA TRACHOMATIS DNA NEGATIVE (NEGATIVE); NEISSERIA GONORRHOEAE DNA NEGATIVE (NEGATIVE); TRICHOMONAS VAGINALIS DNA NEGATIVE (NEGATIVE)
== END 2021-04-09 23:59 ==
LOC: LAB.WC 08:00
PROVIDERS: ATTEND Obstetrics & Gynecology
DX: Z36.89 Encounter for other specified antenatal screening (principal)
CPT/HCPCS: 87491; 87591; 87661

== ENCOUNTER 2021-05-20 10:13 | Outpatient (CLI) | payer OTHER ==
[2021-05-20 10:42] LABS: BASOPHILS # (AUTO) 0.1 10^3/uL (0.0-0.1); BASOPHILS % (AUTO) 0.5 %; EOSINOPHILS # (AUTO) 0.1 10^3/uL (0.0-0.7); HCT - HEMATOCRIT 37.1 % (37.0-47.0); HGB - HEMOGLOBIN 12.7 g/dL (12.0-16.0); LYMPHOCYTES # (AUTO) 1.9 10^3/uL (1.5-3.5); LYMPHOCYTES % (AUTO) 19.2 %; MEAN CORPUSCULAR HEMOGLOBIN 30.6 pg (27.0-31.0); MEAN CORPUSCULAR HGB CONC 34.2 g/dL (32.0-36.0); MEAN CORPUSCULAR VOLUME 89.4 fL (81.0-99.0); MEAN PLATELET VOLUME 9.1 fL (7.9-10.8); MONOCYTES # (AUTO) 0.6 10^3/uL (0.0-1.0); MONOCYTES % (AUTO) 5.5 %; NEUTROPHILS # (AUTO) 7.4 10^3/uL (1.5-6.6); NEUTROPHILS % (AUTO) 73.4 %; PLT - PLATELET COUNT 238 10^3/uL (130-450); RED BLOOD COUNT 4.15 10^6/uL (4.20-5.40)
[2021-05-20 11:13] LABS: THYROID STIMULATING HORMONE 1.63 uIU/mL (0.34-5.60)
[2021-05-21 13:12] LABS: HIV AG/AB 4TH GEN NON-REACTIVE (NON-REACTIVE)
[2021-05-21 13:27] LABS: HEPATITIS B SURFACE ANTIGEN NON-REACTIVE (NON-REACTIVE); HEPATITIS C ANTIBODY NON-REACTIVE (NON-REACTIVE)
== END 2021-05-20 10:14 | disposition home or self-care (01) ==
LOC: LAB 10:13
PROVIDERS: ATTEND Obstetrics & Gynecology
DX: O99.419 Diseases of the circulatory system complicating pregnancy, unspecified trimester (principal); R00.2 Palpitations; Z36.89 Encounter for other specified antenatal screening
CPT/HCPCS: 36415; 84443; 85025; 86592; 86762; 86787; 86803; 86850; 86900; 86901; 87340; 87389

== ENCOUNTER 2021-05-26 15:16 | Outpatient (CLI) | payer OTHER ==
--- NOTE | 2021-05-27 11:20 | Ultrasound Report ---
PROCEDURE: OB Detailed Eval INDICATIONS: SUPERVISION OF NORMAL OUTSIDE/PRIOR DATING DATA: Last menstrual period (LMP): Not available. LMP-based estimated date of delivery (MOLLY): Not available. First dating scan (date and location): 02/12/2021. Estimated date of delivery (MOLLY) from first dating scan: 10/10/2021. The below data below was generated using the above MOLLY of 10/10/2021 TECHNIQUE: Real-time scanning was performed of the fetus, with image documentation and biometric measurements. Endovaginal scanning: Not needed COMPARISON: 02/12/2021 OB ultrasound FINDINGS: General: A single living intrauterine gestation is present. Presentation: Variable Placenta: Placental position is anterior, without previa. Amniotic fluid index: 13.2 cm, normal for gestational age. heart rate: 135 beats per minute. Maternal cervical canal: 5.4 cm long; normal length is 2.5 cm or more. biometrics: Biparietal diameter: 4.7 cm, 20 weeks 1 day Head circumference: 17.8 cm, 20 weeks 2 days Abdominal circumference: 16.4 cm, 21 weeks 3 days Femur length: 3.1 cm, 19 weeks 4 days Estimated gestational age from initial scan: 20 weeks 3 days. Composite gestational age from present scan: 20 weeks 1 day Estimated weight and percentile: 361 g, 52nd percentile Measurement variability in biometric dating: +/- 10 days from 12-20 weeks gestation, +/- 2 weeks from 20-30 weeks gestation, +/- 3 weeks at 30 weeks gestation or later. Anatomic survey: Neuro: Ventricles are normal at less than 10 mm. Cisterna magna is normal at 3-11 mm. Cerebellum i s normal in size and morphology. Nuchal skin fold: Normal at less than 6 mm between 14 and 20 weeks gestational age. Face: Nose and lips, facial profile are not well seen.. Spine: No evidence for spina bifida. Heart: 4-chambered heart is present, with normal ventricular outflow tracts. Diaphragm: Diaphragm is intact. Stomach: Left-sided stomach is present. Kidneys: No hydronephrosis. Normal is less than 5 mm in 2nd trimester, less than 7 mm in 3rd trimester. Cord: 3 vessel cord has orthotopic insertion. Bladder: Normal in size. Extremities: All 4 extremities are visualized. IMPRESSION: Appropriate interval growth, no anomaly seen. The facial profile was poorly visualized du e to positioning and if clinically desired follow-up by 1-2 week follow-up completion of the fe isabela anatomic survey could be performed utilizing limited OB ultrasound. Reviewed by: Gordo Lopez MD on 05/27/2021 11:18 AM PDT Approved by: Gordo Lopez MD on 05/27/2021 11:18 AM PDT Station ID: [id number]
== END 2021-05-26 15:17 | disposition home or self-care (01) ==
LOC: DI 15:16
PROVIDERS: ATTEND Obstetrics & Gynecology
DX: Z34.00 Encounter for supervision of normal first pregnancy, unspecified trimester (principal)

== ENCOUNTER 2021-07-17 10:34 | Outpatient (CLI) | payer OTHER ==
[2021-07-17 11:47] LABS: HCT - HEMATOCRIT 38.4 % (37.0-47.0); HGB - HEMOGLOBIN 13.3 g/dL (12.0-16.0); MEAN CORPUSCULAR HEMOGLOBIN 31.3 pg (27.0-31.0); MEAN CORPUSCULAR HGB CONC 34.6 g/dL (32.0-36.0); MEAN CORPUSCULAR VOLUME 90.4 fL (81.0-99.0); MEAN PLATELET VOLUME 9.2 fL (7.9-10.8); RED BLOOD COUNT 4.25 10^6/uL (4.20-5.40); RED CELL DISTRIBUTION WIDTH 12.3 % (12.0-15.0); WHITE BLOOD COUNT 11.2 x10^3/uL (4.8-10.8)
== END 2021-07-17 10:35 | disposition home or self-care (01) ==
LOC: LAB 10:34
PROVIDERS: ATTEND Obstetrics & Gynecology
DX: Z36.89 Encounter for other specified antenatal screening (principal)
CPT/HCPCS: 36415; 82950; 85027

== ENCOUNTER 2021-07-28 14:17 | Outpatient (CLI) | payer OTHER ==
--- NOTE | 2021-07-28 16:42 | Ultrasound Report ---
PROCEDURE: OB F/U or Repeat INDICATIONS: SUPERVISION OF NORMAL , FAS FOLLOW UP OUTSIDE/PRIOR DATING DATA: Last menstrual period (LMP): Unknown. LMP-based estimated date of delivery (MOLLY): Unknown. First dating scan (date and location): 02/12/2021. Estimated date of delivery (MOLLY) from first dating scan: 10/10/2021. The below data below was generated using the ultrasound MOLLY of 10/10/2021 TECHNIQUE: Real-time scanning was performed of the fetus, with image documentation and biometric measurements. COMPARISON: OB ultrasound 05/26/2021, 02/12/2021 FINDINGS: General: A single living intrauterine gestation is present. Presentation: Vertex Placenta: Placental position is anterior, without previa. Amniotic fluid index: 13.2 cm, normal for gestational age. Largest pocket 4.9 cm. heart rate: 132 beats per minute. Maternal cervical canal: 4.1 cm long; normal length is 2.5 cm or more. biometrics: Estimated gestational age from initial scan: 29 weeks 3 days Other: Repeat images of the facial profile/nose and lips are within normal limits. Previously noted m arginal cord insertion has resolved with distance now measuring 4.3 cm. IMPRESSION: 1. Single live intrauterine with normal visualization of facial profile/nose and lips. 2. Previously noted marginal cord insertion has resolved. Reviewed by: Beth Cabezas MD on 07/28/2021 4:41 PM PDT Approved by: Beth Cabezas MD on 07/28/2021 4:41 PM PDT Station ID: [id number]
== END 2021-07-28 14:18 | disposition home or self-care (01) ==
LOC: DI 14:17
PROVIDERS: ATTEND Obstetrics & Gynecology
DX: Z34.03 Encounter for supervision of normal first pregnancy, third trimester (principal)

== ENCOUNTER 2021-08-14 12:53 | Outpatient (CLI) | payer MEDICAID, OTHER ==
[2021-08-14 18:09] LABS: HGB - HEMOGLOBIN 13.4 g/dL (12.0-16.0); MEAN CORPUSCULAR HEMOGLOBIN 29.9 pg (27.0-31.0); MEAN CORPUSCULAR HGB CONC 32.7 g/dL (32.0-36.0); MEAN CORPUSCULAR VOLUME 91.5 fL (81.0-99.0); MEAN PLATELET VOLUME 10.3 fL (7.9-10.8); RED BLOOD COUNT 4.48 10^6/uL (4.20-5.40); RED CELL DISTRIBUTION WIDTH 12.5 % (12.0-15.0); WHITE BLOOD COUNT 12.4 x10^3/uL (4.8-10.8)
[2021-08-14 19:20] LABS: % IRON SATURATION 10 % (20-50); IRON 57 ug/dL (28-170); TOTAL IRON BINDING CAPACITY 598 ug/dL (250-450); TRANSFERRIN 427 mg/dL (192-382)
== END 2021-08-14 23:59 | disposition home or self-care (01) ==
LOC: LAB.WCP 12:53
PROVIDERS: ATTEND Obstetrics & Gynecology
DX: O99.019 Anemia complicating pregnancy, unspecified trimester (principal); O26.819 Pregnancy related exhaustion and fatigue, unspecified trimester
CPT/HCPCS: 36415; 82728; 83540; 84466; 85025; 85027

== ENCOUNTER 2021-09-09 11:34 | Outpatient (CLI) | payer MEDICAID ==
[2021-09-09 12:02] LABS: BASOPHILS # (AUTO) 0.1 10^3/uL (0.0-0.1); BASOPHILS % (AUTO) 0.6 %; EOSINOPHILS # (AUTO) 0.1 10^3/uL (0.0-0.7); EOSINOPHILS % (AUTO) 1.1 %; HCT - HEMATOCRIT 38.9 % (37.0-47.0); HGB - HEMOGLOBIN 13.3 g/dL (12.0-16.0); LYMPHOCYTES # (AUTO) 2.5 10^3/uL (1.5-3.5); LYMPHOCYTES % (AUTO) 20.5 %; MEAN CORPUSCULAR HEMOGLOBIN 30.5 pg (27.0-31.0); MEAN CORPUSCULAR HGB CONC 34.2 g/dL (32.0-36.0); MEAN CORPUSCULAR VOLUME 89.2 fL (81.0-99.0); MEAN PLATELET VOLUME 10.5 fL (7.9-10.8); MONOCYTES # (AUTO) 1.1 10^3/uL (0.0-1.0); MONOCYTES % (AUTO) 9.1 %; NEUTROPHILS # (AUTO) 8.4 10^3/uL (1.5-6.6); NEUTROPHILS % (AUTO) 68.1 %; PLT - PLATELET COUNT 227 10^3/uL (130-450); RED BLOOD COUNT 4.36 10^6/uL (4.20-5.40); RED CELL DISTRIBUTION WIDTH 12.9 % (12.0-15.0); WHITE BLOOD COUNT 12.4 x10^3/uL (4.8-10.8)
[2021-09-09 12:23] LABS: ALBUMIN 3.3 g/dL (3.2-5.5); BILIRUBIN,TOTAL 0.8 mg/dL (0.2-1.0); CREATININE 0.6 mg/dL (0.4-1.0); POTASSIUM 4.2 mmol/L (3.5-5.0); TOTAL PROTEIN 6.6 g/dL (6.7-8.2)
--- NOTE | 2021-09-09 12:56 | PROVIDER PROGRESS NOTE ---
Progress Note Patient is a 21-year-old G1, P0 at 35 weeks 4 days gestation presenting to triage for elevated blood pressures in clinic. At that time blood pressure was 132/98. This has been slightly increased over the last several weeks. She has good movement, no leaking, no vaginal bleeding. Patient did have a headache this morning but did take Maxalt due to severity. She does feel better now. No abdominal pain or changes in vision. All other symptoms reviewed and were negative except per HPI. Past medical history Migraines Past surgical history [place] teeth Family history Father: Diabetes Maternal grandmother: Breast cancer Paternal grandfather: Diabetes Paternal grandmother: Diabetes Social history Denies tobacco, alcohol, drugs Medications Maxalt vitamins Allergies: No known drug allergies Physical Temp Pulse Resp BP Pulse Ox 97.9 F 64 16 133/96 H 100 09/09/21 12:00 09/09/21 12:00 09/09/21 12:00 09/09/21 12:50 09/09/21 12:00 Constitutional: alert, no acute distress, well hydrated, well developed, well nourished, appropriate dress. Skin: normal turgor, normal color. Head: atraumatic, normocephalic. Cardiovascular: RRR. Respiratory: no respiratory distress. Abdomen: nondistended, nontender. Spine: normal mobility. Neurologic: normal, sensation intact, motor intact. Psych: affect and mood appropriate, normal interaction, good eye contact. FHT: 125 bpm baseline, moderate variability, accelerations present, no decelerations. [place]: Quiescent Assessment and plan 1. 35 weeks gestation 2. Elevated blood pressures. While in clinic today, patient had blood pressures, these remain mildly elevated here, but no severe range elevations. We will recheck blood pressure next visit, and that point would potentially confirm the diagnosis of gestational hypertension. Currently does not meet criteria. -Lab values are unremarkable with platelets of 227, AST/ALT of 30/31. Creatinine of 0.6. Protein to creatinine ratio of 0.1. Plan to discharge with close follow-up in clinic. 3. Headache -Resolved with Maxalt, will keep an eye on this as it can confound diagnosis of preeclampsia.
[2021-09-09 13:02] LABS: CREATININE,URINE 48.9 mg/dL; PROTEIN/CREATININE RATIO,URINE 0.1 (<=0.2)
[2021-09-09 13:22] VITALS: BP 124/79
== END 2021-09-09 13:15 | disposition home or self-care (01) ==
LOC: WFO 11:34 → FBP 11:38 → WFO 13:15
PROVIDERS: ATTEND Obstetrics & Gynecology
DX: O99.891 Other specified diseases and conditions complicating pregnancy (principal); R03.0 Elevated blood-pressure reading, without diagnosis of hypertension; R51.9 Headache, unspecified; Z3A.35 35 weeks gestation of pregnancy
CPT/HCPCS: 36415; 59025; 80053; 82570; 84156; 85025; 87081; 87797; 99215

== ENCOUNTER 2021-09-16 10:54 | Inpatient (IN) | payer MEDICAID ==
[2021-09-16] MEDS ORDERED: BETAMETHASONE 30 MG/5 ML VIAL IM ONE (11:22)
[2021-09-16] MEDS ORDERED: LABETALOL 20 MG/4 ML SYRINGE IVP ONE (11:23)
[2021-09-16] MEDS: SODIUM CHLORIDE FLUSH 0.9% 10 ML SYRINGE IVP SCH (11:40)
[2021-09-16 11:51] LABS: BASOPHILS # (AUTO) 0.1 10^3/uL (0.0-0.1); BASOPHILS % (AUTO) 0.6 %; EOSINOPHILS # (AUTO) 0.1 10^3/uL (0.0-0.7); EOSINOPHILS % (AUTO) 0.9 %; HCT - HEMATOCRIT 37.9 % (37.0-47.0); HGB - HEMOGLOBIN 13.1 g/dL (12.0-16.0); LYMPHOCYTES # (AUTO) 2.3 10^3/uL (1.5-3.5); LYMPHOCYTES % (AUTO) 19.4 %; MEAN CORPUSCULAR HEMOGLOBIN 30.5 pg (27.0-31.0); MEAN CORPUSCULAR HGB CONC 34.6 g/dL (32.0-36.0); MEAN CORPUSCULAR VOLUME 88.1 fL (81.0-99.0); MEAN PLATELET VOLUME 10.6 fL (7.9-10.8); MONOCYTES # (AUTO) 0.9 10^3/uL (0.0-1.0); MONOCYTES % (AUTO) 7.6 %; NEUTROPHILS # (AUTO) 8.5 10^3/uL (1.5-6.6); NEUTROPHILS % (AUTO) 70.8 %; PLT - PLATELET COUNT 230 10^3/uL (130-450); RED CELL DISTRIBUTION WIDTH 13.1 % (12.0-15.0); WHITE BLOOD COUNT 12.1 x10^3/uL (4.8-10.8)
[2021-09-16 12:04] LABS: ALBUMIN 3.2 g/dL (3.2-5.5); BILIRUBIN,TOTAL 0.6 mg/dL (0.2-1.0); CALCIUM 9.2 mg/dL (8.5-10.3); CREATININE 0.7 mg/dL (0.4-1.0); POTASSIUM 4.4 mmol/L (3.5-5.0); TOTAL PROTEIN 6.4 g/dL (6.7-8.2)
[2021-09-16 12:11] LABS: CREATININE,URINE 151.7 mg/dL; PROTEIN/CREATININE RATIO,URINE 0.3 (<=0.2)
[2021-09-16] MEDS ORDERED: CARBOPROST TROMETHAMINE 250 MCG/ML AMP IM PRN (13:51)
[2021-09-16] MEDS ORDERED: miSOPROStoL 200 MCG TABLET BC PRN (13:51)
[2021-09-16] MEDS ORDERED: OXYTOCIN/SODIUM CHLORIDE 500 ML IV PRN (13:51)
[2021-09-16] MEDS ORDERED: SODIUM CHLORIDE FLUSH 0.9% 10 ML SYRINGE IVP PRN (13:51)
[2021-09-16] MEDS ORDERED: LIDOCAINE-MPF 1% 30 ML VIAL ID PRN (13:51)
[2021-09-16] MEDS ORDERED: ONDANSETRON 4 MG/2 ML VIAL IVP PRN (13:51)
[2021-09-16] MEDS ORDERED: TRANEXAMIC ACID IN NACL 1,000 MG/100 ML BAG IV PRN (13:51)
[2021-09-16] MEDS ORDERED: OXYTOCIN 10 UNIT/ML VIAL IM PRN (13:51)
[2021-09-16] MEDS ORDERED: METHYLERGONOVINE 0.2 MG/ML VIAL IM PRN (13:51)
[2021-09-16] MEDS ORDERED: LACTATED RINGERS 1,000 ML IV SCH (14:00)
--- NOTE | 2021-09-16 14:03 | HISTORY & PHYSICAL EXAMINATION ---
Admit History - Visit Reason Visit Reason: Other (Patient was sent from clinic secondary to elevated blood pressures. She reports she has had a headache since last Tuesday. Her headache is not relieved by Tylenol. She did note nausea and vomiting this morning. She denies vision changes. She was seen in labor and delivery last week and diagno) - : 1 Parity: 0 Care: positive: Other ([place]) Risk/History: positive: Labor induction Complications This : positive: Pre-eclampsia Smoking Status: Never smoker - Mother's Labs Mother's Blood Type: positive: O Mother's RH: positive: Positive GBS: positive: Group B Step Negative Rubella Status: positive: Immune - Other Maternal History Other Maternal History: none reported Meds/Allgy - Home Medications Home Medications: Ambulatory Orders Medication Instructions Recorded Confirmed 168/Iron/Folic/Omega3 1 each PO DAILY #30 02/12/21 03/06/21 [One-A-Day -1 Softgel] Metoclopramide [Reglan] 10 mg PO Q6H PRN #20 tablet 03/06/21 - Allergies Allergies/Adverse Reactions: Allergies Allergy/AdvReac Type Severity Reaction Status Date / Time No Known Drug Allergies Allergy Verified 03/06/21 13:29 Review of Systems - Genitourinary Genitourinary: reports: Other (contractions) - Neurological Neurological: reports: Headache Physical - Abdominal Exam Vital Signs: Temp Pulse Resp BP Pulse Ox 98.6 F 81 17 125/91 H 100 09/16/21 11:40 09/16/21 11:05 09/16/21 11:05 09/16/21 13:15 09/16/21 11:05 Vital Signs - 8 hr 09/16/21 09/16/21 09/16/21 11:05 11:15 11:30 Temperature 98.6 F Heart Rate [ 81 Monitoring electrodes] Respiratory 17 Rate Blood Pressure 148/102 H 143/100 H 140/93 H [Left Brachial artery] Blood Pressure [Right Brachial artery] O2 Saturation 100 09/16/21 09/16/21 09/16/21 11:40 11:45 12:00 Temperature 98.6 F Heart Rate [ Monitoring electrodes] Respiratory Rate Blood Pressure [Left Brachial artery] Blood Pressure 157/106 H 146/92 H [Right Brachial artery] O2 Saturation 09/16/21 09/16/21 09/16/21 12:15 12:30 12:45 Temperature Heart Rate [ Monitoring electrodes] Respiratory Rate Blood Pressure [Left Brachial artery] Blood Pressure 140/102 H 136/90 H 135/90 H [Right Brachial artery] O2 Saturation 09/16/21 09/16/21 13:00 13:15 Temperature Heart Rate [ Monitoring electrodes] Respiratory Rate Blood Pressure [Left Brachial artery] Blood Pressure 145/87 H 125/91 H [Right Brachial artery] O2 Saturation Uterine Resting Tone: positive: Soft - Monitoring Strip Review: positive: Category I - Presentation Presentation: positive: Vertex - Vaginal Exam Membranes: positive: Membranes intact Dilation (in cm): 1 Effacement (%): 0 Station: positive: -3 Cervical Position: positive: Midposition Plan for Labor - Plan For Labor Plan for Labor: Physical exam General- no acute distres Abdomen- soft nontender Lungs clear to auscultation bilaterally. Heart regular rate and rhythm 21-year-old G1, P0 at 36 weeks 5 days admitted for preeclampsia with severe features. 1. Preeclampsia with severe features. Based elevated blood pressures, urine protein creatinine ratio of .3 and persistent headache. Will admit for delivery. Fioricet ordered. Will start magnesium sulfate if patient continues to have severe features. Betamethasone series started. Labs reviewed and within normal limits. 2. Induction of labor due to preeclampsia with severe features. SVE 1 thick and high. Contractions currently q. 1 to 2 minutes at this time. Plan for Sunshine bulb if additional cervical ripening indicated. 3. 36 weeks gestationGBS negative, EFW 2566g, 16 percentile, Betamethasone series ordered. Plan discussed with patient who is agreeable.
[2021-09-16] MEDS: BUTALB/ACETAM/CAFF 50/325/40MG TABLET PO PRN (14:04)
--- NOTE | 2021-09-16 14:27 | Ultrasound Report ---
PROCEDURE: OB F/U or Repeat INDICATIONS: ghtn OUTSIDE/PRIOR DATING DATA: Last menstrual period (LMP): Unknown. LMP-based estimated date of delivery (MOLLY): Unknown. First dating scan (date and location): 02/12/2021. Estimated date of delivery (MOLLY) from first dating scan: 10/10/2021. The below data below was generated using the ultrasound MOLLY of 10/10/2021 TECHNIQUE: Real-time scanning was performed of the fetus, with image documentation and biometric measurements. COMPARISON: OB ultrasound 02/24/2021, 05/26/2021, 07/28/2021 FINDINGS: General: A single living intrauterine gestation is present. Presentation: Vertex Placenta: Placental position is anterior, without previa. Amniotic fluid index: 12.1 cm, within normal limits for gestational age. Largest pocket 4.56 cm heart rate: 133 beats per minute. Maternal cervical canal: 3 cm long; normal length is 2.5 cm or more. biometrics: Biparietal diameter: 8.8 cm 35 weeks 3 days Head circumference: 32.0 cm 36 weeks 1 day Abdominal circumference: 31.5 cm 35 weeks 3 days Femur length: 6.5 cm 33 weeks 3 days Estimated gestational age from initial scan: 35 weeks 1 day Composite gestational age from present scan: 35 weeks 6 days Estimated weight and percentile: 2566 g 16th percentile Measurement variability in biometric dating: +/- 10 days from 12-20 weeks gestation, +/- 2 weeks from 20-30 weeks gestation, +/- 3 weeks at 30 weeks gestation or more. Other: Not applicable. IMPRESSION: 1. Ultrasound gestational age today of 35 weeks 6 days compared to 35 weeks 1 day from initial ultras ound. 2. Estimated weight is at the 16th percentile. Continued interval follow-up is recommended as i ndicated. Reviewed by: Beth Cabezas MD on 09/16/2021 2:26 PM PST Approved by: Beth Cabezas MD on 09/16/2021 2:26 PM PST Station ID: [id number]
[2021-09-16] MEDS ORDERED: MAGNESIUM SULFATE 4 GRAM 4 GM/50 ML BAG IV ONE (15:35)
[2021-09-16] MEDS: MAGNESIUM SULFATE IN WATER 20 GM/500 ML IV.SOLN IV SCH (16:15)
[2021-09-16] MEDS ORDERED: MORPHINE 2 MG/ML CARPUJECT IVP SCH (16:35)
[2021-09-16] MEDS ORDERED: LACTATED RINGERS 1,000 ML IV STA (17:00)
[2021-09-16] MEDS: PROCHLORPERAZINE 10 MG/2 ML VIAL IVP PRN (17:33)
--- NOTE | 2021-09-16 20:25 | MISCELLANEOUS PROVIDER NOTE ---
Miscellaneous Provider Note - - Note: Patient seen at bedside. Headache now improved to 4 out of 10. Magnesium sulfate for seizure prophylaxis in progress. Blood pressure is within normal limits. External monitoring reactive and reassuring. No current questions or concerns. Discussed plan for induction.
[2021-09-16] MEDS ORDERED: ZOLPIDEM 5 MG TABLET PO PRN (20:40)
[2021-09-17] MEDS: BUTALB/ACETAM/CAFF 50/325/40MG TABLET PO PRN (02:05)
[2021-09-17] MEDS ORDERED: NALBUPHINE 10 MG/ML AMP IVP PRN ×2 (03:15→03:34)
[2021-09-17] MEDS: PROCHLORPERAZINE 10 MG/2 ML VIAL IVP PRN ×3 (03:27→20:35)
--- NOTE | 2021-09-17 03:28 | PROVIDER PROGRESS NOTE ---
Labor Progress Note - Uterine Monitoring Uterine Monitoring Mode: positive: External toco Contraction Frequency (min/apart): 10 - Monitoring Monitor Mode: positive: External ultrasound Heart Rate Baseline: 120 Heart Rate Variability: positive: Moderate (6-25 bmp) Accelerations: positive: Present, 15x15 Decelerations: positive: None Strip Review: positive: Category I - Vaginal Exam Dilation (in cm): 1 Effacement (%): 50 Station: -3 Cervical Position: Midposition - Labor Progress Note Labor Progress Note/Additional Text: 21-year-old G1, P0 at 36 weeks 6 days admitted for induction of labor secondary to preeclampsia with severe features. 1. Preeclampsia with severe features based on elevated blood pressures and persistent headache. Headache improved with Compazine previously following Fioricet and morphine. Patient reports headache is now returned and she has received Fioricet. Blood pressures within normal limits at this time. Labs within normal limits. Magnesium sulfate for seizure prophylaxis in progress. 2. Induction of laborsecondary to preeclampsia with severe features Sunshine bulb placed using sterile technique. Insufflated with sterile water. 3. 36 weeks gestationstatus post betamethasone No. 1 with plan for second dose tomorrow.
[2021-09-17] MEDS: SODIUM CHLORIDE FLUSH 0.9% 10 ML SYRINGE IVP SCH ×2 (07:35→12:33)
--- NOTE | 2021-09-17 09:47 | ANESTHESIA ---
Pre-Anesthesia VS, & Labs - Diagnosis Induction of labor, pre-eclampsia with severe features - Procedure Vaginal delivery Vital Signs: Temp Pulse Resp BP Pulse Ox 36.7 C 100 18 119/69 100 09/17/21 02:00 09/17/21 02:00 09/17/21 02:00 09/17/21 02:00 09/17/21 02:00 Height: 5 ft 2 in Weight (kg): 68.039 kg Body Mass Index: 27.4 BMI Classification: Overweight - NPO Other (clear liquids) - Is Patient ?: Yes - Lab Results Current Lab Results: Laboratory Tests 09/16/21 11:40: Blood Type O POSITIVE, Antibody Screen NEGATIVE 09/16/21 11:40: Sodium 136, Potassium 4.4, Chloride 107, Carbon Dioxide 18 L, Anion Gap 11.0, BUN 10, Creatinine 0.7, Estimated GFR (MDRD) 106, Glucose 83, Calcium 9.2, Total Bilirubin 0.6, AST 30, ALT 28, Alkaline Phosphatase 156 H, Total Protein 6.4 L, Albumin 3.2, Globulin 3.2, Albumin/Globulin Ratio 1.0 09/16/21 11:40: WBC 12.1 H, RBC 4.30, Hgb 13.1, Hct 37.9, MCV 88.1, MCH 30.5, MCHC 34.6, RDW 13.1, Plt Count 230, MPV 10.6, Neut # (Auto) 8.5 H, Lymph # (Auto) 2.3, [place] # (Auto) 0.9, Eos # (Auto) 0.1, Baso # (Auto) 0.1, Absolute Nucleated RBC 0.00, Nucleated RBC % 0.0 Lab results reviewed: Yes Fish Bones: 09/16/21 11:40 09/16/21 11:40 Home Medications and Allergies Active Medications Acetaminophen/Butalbital/Caffeine (Butalb/Acetam/Caff 50/325/40mg Tablet) 2 tab PO Q4HR PRN PRN Reason: HEADACHE Last Admin: 09/17/21 02:05 Dose: 2 tab Documented by: Carboprost Tromethamine (Carboprost Tromethamine 250 Mcg/Ml Amp) 250 mcg IM Q15M PRN PRN Reason: Step 4: Hemorrhage protocol Stop: 09/21/21 13:54 Oxytocin/Sodium Chloride (Pitocin/Sodium Chloride) 500 mls @ 999 mls/hr IV PRN PRN; Protocol PRN Reason: POST- HEMORR PREVENTION Stop: 09/21/21 13:54 Tranexamic Acid (Tranexamic 1,000 Mg/100ml-Nacl) 1,000 mg in 100 mls @ 600 mls/hr IV .ONCE PRN PRN Reason: EBL >1200mL and within 3hr Stop: 09/21/21 13:54 Magnesium Sulfate (Magnesium Sulf 20 G/500 Ml Bag) 20 gm in 500 mls @ 50 mls/hr IV .Q10H [facility] Last Infusion: 09/17/21 02:26 Dose: Infused Documented by: Lidocaine HCl (Lidocaine-Mpf 1% 30 Ml Vial) 30 ml ID .ONCE PRN PRN Reason: PERINEAL REPAIR Stop: 09/21/21 13:54 Misoprostol (Misoprostol 200 Mcg Tablet) 800 mcg BC .ONCE PRN PRN Reason: Step 3: Hemorrhage protocol Stop: 09/21/21 13:54 Nalbuphine HCl (Nalbuphine 10 Mg/Ml Amp) 5 mg IVP Q4HR PRN PRN Reason: PAIN Stop: 09/17/21 23:59 Ondansetron HCl (Ondansetron 4 Mg/2 Ml Vial) 4 mg IVP Q4H PRN PRN Reason: Nausea / Vomiting Oxytocin (Oxytocin 10 Unit/Ml Vial) 10 unit IM .ONCE PRN PRN Reason: Step one: If no IV access Stop: 09/21/21 13:54 Prochlorperazine Edisylate (Prochlorperazine 10 Mg/2 Ml Vial) 10 mg IVP Q6HR PRN PRN Reason: Nausea / Vomiting Last Admin: 09/17/21 09:10 Dose: 10 mg Documented by: Sodium Chloride (Sodium Chloride Flush 0.9% 10 Ml Syringe) 10 ml IVP PRN PRN PRN Reason: NEEDED PER PROVIDER ORDERS Sodium Chloride (Sodium Chloride Flush 0.9% 10 Ml Syringe) 10 ml IVP 0100,0900,1700 [facility] Last Admin: 09/17/21 07:35 Dose: Not Given Documented by: Zolpidem Tartrate (Zolpidem 5 Mg Tablet) 5 mg PO QPM PRN PRN Reason: Insomnia Last Admin: 09/16/21 22:15 Dose: 5 mg Documented by: Allergies/Adverse Reactions: Allergies Allergy/AdvReac Type Severity Reaction Status Date / Time No Known Drug Allergies Allergy Verified 03/06/21 13:29 Anes History & Medical History - Anesthetic History Anesthesia Complications: reports: No previous complications - Medical History Cardiovascular: reports: None Pulmonary: reports: None Gastrointestinal: reports: None Urinary: reports: None Neuro: reports: Migraines Musculoskeletal: reports: None Endocrine/Autoimmune: reports: None Blood Disorders: reports: None Skin: reports: None Smoking Status: Never smoker Psychosocial: reports: No issues indicated History of Cancer?: No - Surgical History Eyes Ears Nose Throat (EENT): reports: Other (Frenulectomy for tongue tie) - Obstetrical History : 1 Parity: 0 Events: reports: Labor induction Complications: reports: Pre-eclampsia Exam General: Alert, Oriented x3, Cooperative, No acute distress Dental: WNL Mouth Openin Fingerbreadth Neck Mobility: Normal Mallampati classification: I Thyromental Distance: 4-6 cm Respiratory: Lungs clear, Normal breath sounds, No respiratory distress, No accessory muscle use Cardiovascular: Regular rate, Normal S1, Normal S2, No murmurs Mental/Cognitive Status: Alert/Oriented X3, Normal for patient Plan Anesthesia Type: Epidural Consent for Procedure(s) Verified and Reviewed: Yes Code Status: Attempt Resuscitation ASA classification: 3-Severe systemic disease Is this case an emergency?: No
--- NOTE | 2021-09-17 10:59 | PROVIDER PROGRESS NOTE ---
Labor Progress Note - Uterine Monitoring Uterine Monitoring Mode: positive: External toco - Monitoring Monitor Mode: positive: External ultrasound Heart Rate Baseline: 115 Heart Rate Variability: positive: Moderate (6-25 bmp) Accelerations: positive: Present, 15x15 Decelerations: positive: None Strip Review: positive: Category I - Labor Progress Note Labor Progress Note/Additional Text: Reported headache overnight which resolved with Compazine. Sunshine remains in place. Postop to traction. Will start low-dose Pitocin. Blood pressures within normal limits. Magnesium sulfate. 1+ pitting edema noted bilaterally. Urine output adequate. Betamethasone No. 2 to be given this afternoon. Plan of care discussed with patient and RN.
[2021-09-17] MEDS: MAGNESIUM SULFATE IN WATER 20 GM/500 ML IV.SOLN IV SCH ×2 (11:10→12:17)
[2021-09-17] MEDS ORDERED: BETAMETHASONE 30 MG/5 ML VIAL IM ONE (12:10)
--- NOTE | 2021-09-17 12:34 | PROVIDER PROGRESS NOTE ---
Labor Progress Note - Uterine Monitoring Uterine Monitoring Mode: positive: External toco - Monitoring Monitor Mode: positive: External ultrasound Heart Rate Baseline: 110 Heart Rate Variability: positive: Moderate (6-25 bmp) Accelerations: positive: Present, 10x10 (=/32 wks) Decelerations: positive: None Strip Review: positive: Category II - Vaginal Exam Dilation (in cm): 4 Effacement (%): 75 Station: -2 Cervical Position: Midposition - Labor Progress Note Labor Progress Note/Additional Text: Called to see patient for symptoms of lightheadedness. Patient was up to the bathroom and with Valsalva blood pressure dropped to 80s over 50s. She was given a small fluid bolus for resuscitation and blood pressures are now 100s over 70s. Plan for Sunshine catheter. Magnesium level ordered. Mag sulfate infusion paused. Will titrate Pitocin once patient blood pressure recovers.
[2021-09-17] MEDS ORDERED: LACTATED RINGERS 1,000 ML IV SCH (13:00)
[2021-09-17] MEDS ORDERED: LACTATED RINGERS 1,000 ML ONE (13:12)
[2021-09-17] MEDS ORDERED: ROPIVACAINE 0.2% 200 MG/100 ML BAG EP ONE (16:23)
[2021-09-17] MEDS ORDERED: NALOXONE 0.4 MG/ML VIAL IVP PRN (16:39)
[2021-09-17] MEDS ORDERED: ROPIVACAINE 0.2% 200 MG/100 ML BAG EP PRN (16:39)
[2021-09-17] MEDS ORDERED: ePHEDrine 50 MG/ML VIAL IVP PRN (16:39)
--- NOTE | 2021-09-17 18:02 | PROVIDER PROGRESS NOTE ---
Labor Progress Note - Uterine Monitoring Uterine Monitoring Mode: positive: External toco - Monitoring Monitor Mode: positive: External ultrasound Heart Rate Variability: positive: Moderate (6-25 bmp) Accelerations: positive: Present, 15x15 Decelerations: positive: None Strip Review: positive: Category I - Vaginal Exam Dilation (in cm): 4(on exam by RN) Effacement (%): 75 Station: -2 Cervical Position: Midposition - Labor Progress Note Labor Progress Note/Additional Text: 21-year-old G1, P0 at 36 weeks 6 days admitted for induction of labor secondary to preeclampsia with severe features. 1. Preeclampsia with severe featurespatient has had labile blood pressures. She had a vasovagal episode with hypotension earlier today. Her blood pressures have now returned to her baseline. Urine output is adequate. 2. Induction of laborstatus post Sunshine bulb. Cervix is progressed to 4 cm. Pitocin titration in progress.
[2021-09-17] MEDS ORDERED: FAMOTIDINE 20 MG/2 ML VIAL IVP PRN (20:48)
[2021-09-17] MEDS ORDERED: LACTATED RINGERS 300 ML IV ONE (20:49)
--- NOTE | 2021-09-17 22:43 | DELIVERY NOTE ---
Delivery Note - Labor Labor: positive: Induced by oxytocin - Delivery Method Delivery Method: positive: Spontaneous vaginal delivery - Cervical Ripening Method Cervical Ripening Method: positive: Balloon device, Oxytocin - Presentation Presentation: positive: Vertex - Nuchal Cord Nuchal Cord: positive: None - Anesthetic Anesthetic Type: - Amniotic Fluid Description Amniotic Fluid Description: positive: Clear - Episiotomy Type Episiotomy Type: positive: None - Laceration Laceration: positive: Vaginal (bilateral) - Suture Suture Type: positive: Chromic Suture Size: positive: 3-0 - Delivery Outcome Delivery Outcome: positive: Livebirth - [place] : positive: Placed in direct skin contact with mother [place] sex: positive: Male - Cord Cord: positive: 3 vessels - Placenta Placenta: positive: Intact, Spontaneous, Clot - Estimated Blood Loss Estimated Blood Loss (in cc): 300 - Post Delivery Events Post Delivery Events: positive: No post delivery events - Delivery Comments (Free Text/Narrative) Delivery Comments (Free Text/Narrative): The patient progressed to complete cervical dilation. Amniotomy was performed and clear fluid noted. Shortly after the patient began to feel vaginal pressure. She was placed in dorsal lithotomy position. The head was delivered with maternal pushing. With delivery of the head a large amount of dark-colored blood was noted. A compound hand was also noted. Following delivery of the head the anterior shoulder delivered without difficulty followed subsequently by the posterior shoulder and the remainder of the baby. The baby was vigorous at delivery. Cord clamping was delayed for 1 minute. The cord was doubly clamped and cut and the baby placed on the maternal chest. A cord segment was obtained. Cord gases were obtained. The placenta was delivered with fundal massage.The fundus was noted to be firm. Evaluation of the vagina and perineum revealed bilateral labial lacerations. The left labial laceration was superficial and did not require suturing. The right labial laceration was repaired using 3 -0 chromic suture. Hemostasis was noted. The patient remained in stable condition.
[2021-09-18 07:27] LABS: BASOPHILS % (AUTO) 0.2 %; HCT - HEMATOCRIT 32.4 % (37.0-47.0); HGB - HEMOGLOBIN 10.9 g/dL (12.0-16.0); LYMPHOCYTES # (AUTO) 1.9 10^3/uL (1.5-3.5); LYMPHOCYTES % (AUTO) 10.4 %; MEAN CORPUSCULAR HEMOGLOBIN 30.5 pg (27.0-31.0); MEAN CORPUSCULAR HGB CONC 33.6 g/dL (32.0-36.0); MEAN CORPUSCULAR VOLUME 90.8 fL (81.0-99.0); MONOCYTES # (AUTO) 1.3 10^3/uL (0.0-1.0); MONOCYTES % (AUTO) 7.1 %; NEUTROPHILS # (AUTO) 14.6 10^3/uL (1.5-6.6); NEUTROPHILS % (AUTO) 81.4 %; PLT - PLATELET COUNT 216 10^3/uL (130-450); RED BLOOD COUNT 3.57 10^6/uL (4.20-5.40); RED CELL DISTRIBUTION WIDTH 13.3 % (12.0-15.0)
[2021-09-18] MEDS ORDERED: LABETALOL 20 MG/4 ML SYRINGE IVP ONE (08:19)
[2021-09-18] MEDS: ACETAMINOPHEN 500 MG TABLET PO PRN ×3 (08:28→18:13)
[2021-09-18] MEDS: MAGNESIUM SULFATE IN WATER 20 GM/500 ML IV.SOLN IV SCH ×2 (08:47→19:05)
[2021-09-18] MEDS: LACTATED RINGERS 1,000 ML IV SCH (08:52)
--- NOTE | 2021-09-18 09:17 | PROVIDER PROGRESS NOTE ---
Subjective - Prog Note Date Prog Note Date: 09/18/21 Prog Note Time: 11:41 - Subjective Subjective: Patient has no complaints. She reports minimal bleeding. She did note some contraction pain today which was relieved with pain medications. She denies h eadaches or vision changes. Current Medications - Current Medications Current Medications: Active Medications Generic Name Dose Route Start Last Admin Trade Name Freq PRN Reason Stop Dose Admin Acetaminophen 1,000 mg 09/18/21 08:17 09/18/21 08:28 Acetaminophen 500 Mg Tablet PO 1,000 mg Q4HR PRN Administration Pain or Fever > 38C (100.4F) Acetaminophen/Butalbital/Caffeine 2 tab 09/16/21 13:51 09/17/21 02:05 Butalb/Acetam/Caff 50/325/40mg Tablet PO 2 tab Q4HR PRN Administration HEADACHE Carboprost Tromethamine 250 mcg 09/16/21 13:51 Carboprost Tromethamine 250 Mcg/Ml Amp IM 09/21/21 13:54 Q15M PRN Step 4: Hemorrhage protocol Docusate Sodium 100 mg 09/18/21 12:00 Docusate Sodium 100 Mg Capsule PO BID VIVIAN Ephedrine Sulfate 5 mg 09/17/21 16:39 Ephedrine 50 Mg/Ml Vial IVP Q5M PRN For SBP<100;give until SBP>100 Famotidine 20 mg 09/17/21 20:48 09/17/21 21:10 Famotidine 20 Mg/2 Ml Vial IVP 20 mg BID PRN Administration INDIGESTION Oxytocin/Sodium Chloride 500 mls @ 999 mls/hr 09/16/21 13:51 09/17/21 11:01 Pitocin/Sodium Chloride IV 09/21/21 13:54 2 milliunit/min PRN PRN 2 mls/hr POST- HEMORR PREVENTION Administration Protocol 999 MILLIUNIT/MIN Tranexamic Acid 1,000 mg in 100 mls @ 600 mls/hr 09/16/21 13:51 Tranexamic 1,000 Mg/100ml-Nacl IV 09/21/21 13:54 .ONCE PRN EBL >1200mL and within 3hr Magnesium Sulfate 20 gm in 500 mls @ 50 mls/hr 09/16/21 16:00 09/18/21 08:47 Magnesium Sulf 20 G/500 Ml Bag IV 2 gm/hr .Q10H VIVIAN 50 mls/hr Administration 2 GM/HR Lactated Ringer's 1,000 mls @ 75 mls/hr 09/17/21 13:00 09/17/21 13:13 Lr IV 75 mls/hr .[id number] VIVIAN Administration Ropivacaine 200 mg in 100 mls @ 0 mls/hr 09/17/21 16:39 Naropin 0.2% EP PRN PRN PAIN Protocol Per Protocol Lactated Ringer's 1,000 mls @ 75 mls/hr 09/17/21 23:00 09/18/21 08:52 Lr IV 50 mls/hr .[id number] VIVIAN Administration Lidocaine HCl 30 ml 09/16/21 13:51 Lidocaine-Mpf 1% 30 Ml Vial ID 09/21/21 13:54 .ONCE PRN PERINEAL REPAIR Misoprostol 800 mcg 09/16/21 13:51 Misoprostol 200 Mcg Tablet BC 09/21/21 13:54 .ONCE PRN Step 3: Hemorrhage protocol Naloxone HCl 0.1 mg 09/17/21 16:39 Naloxone 0.4 Mg/Ml Vial IVP Q2M PRN RR<8 Ondansetron HCl 4 mg 09/16/21 13:51 09/17/21 18:20 Ondansetron 4 Mg/2 Ml Vial IVP 4 mg Q4H PRN Administration Nausea / Vomiting Oxycodone HCl 5 mg 09/18/21 08:18 09/18/21 09:53 Oxycodone 5 Mg Tablet PO 5 mg Q4HR PRN Administration PAIN Oxytocin 10 unit 09/16/21 13:51 Oxytocin 10 Unit/Ml Vial IM 09/21/21 13:54 .ONCE PRN Step one: If no IV access Prochlorperazine Edisylate 10 mg 09/16/21 17:19 09/17/21 20:35 Prochlorperazine 10 Mg/2 Ml Vial IVP 10 mg Q6HR PRN Administration Nausea / Vomiting Sodium Chloride 10 ml 09/16/21 13:51 Sodium Chloride Flush 0.9% 10 Ml Syringe IVP PRN PRN NEEDED PER PROVIDER ORDERS Sodium Chloride 10 ml 09/16/21 17:00 09/17/21 12:33 Sodium Chloride Flush 0.9% 10 Ml Syringe IVP Not Given 0100,0900,1700 VIVIAN Zolpidem Tartrate 5 mg 09/16/21 20:40 09/16/21 22:15 Zolpidem 5 Mg Tablet PO 5 mg QPM PRN Administration Insomnia Objective - Vital Signs/Intake & Output Reviewed Vital Signs: Yes Vital Signs: Vital Signs x48h Temp Pulse Resp BP Pulse Ox 09/18/21 07:53 98.2 F 54 L 16 170/88 H 100 09/18/21 02:00 99.0 F 95 16 125/75 Last Vital Signs Temp 98.2 F 09/18/21 07:53 Pulse 54 L 09/18/21 07:53 Resp 16 09/18/21 07:53 BP 170/88 H 09/18/21 07:53 Pulse Ox 100 09/18/21 07:53 Intake & Output: Intake & Output 09/15/21 09/16/21 09/17/21 09/18/21 23:59 23:59 23:59 23:59 Intake Total 2154.666 0 Output Total 1525 1810 600 Balance -1525 344.666 -600 - Objective General Appearance: positive: No acute distress Abdomen: positive: Non-tender, Other (Fundus below umbilicus) - Lab Results Fish Bones: 09/18/21 09:56 09/18/21 09:56 Other Labs: Lab Results x24hrs 09/18/21 09/17/21 Range/Units 07:17 12:37 WBC 18.0 H (4.8-10.8) x10^3/uL RBC 3.57 L (4.20-5.40) 10^6/uL Hgb 10.9 L (12.0-16.0) g/dL Hct 32.4 L (37.0-47.0) % MCV 90.8 (81.0-99.0) fL MCH 30.5 (27.0-31.0) pg MCHC 33.6 (32.0-36.0) g/dL RDW 13.3 (12.0-15.0) % Plt Count 216 (130-450) 10^3/uL MPV 10.0 (7.9-10.8) fL Neut # (Auto) 14.6 H (1.5-6.6) 10^3/uL Lymph # (Auto) 1.9 (1.5-3.5) 10^3/uL [place] # (Auto) 1.3 H (0.0-1.0) 10^3/uL Eos # (Auto) 0.0 (0.0-0.7) 10^3/uL Baso # (Auto) 0.0 (0.0-0.1) 10^3/uL Absolute Nucleated RBC 0.00 x10^3/uL Nucleated RBC % 0.0 /100WBC Magnesium 6.6 H* (1.7-2.8) mg/dL Assessment/Plan - Assessment/Plan Plan: 21-year-old G1, P1 day 1 status post spontaneous vaginal delivery. 1. Preeclampsia with severe features. Based on severe range blood pressures and symptoms of headache. Magnesium sulfate restarted this morning secondary to severe range blood pressures. Blood pressure is now within normal limits. Repeat prelabs within normal limits. Plan for magnesium sulfate for 24 hours for seizure prophylaxis 2. Status post vaginal delivery.Fundus below umbilicus, minimal bleeding, meeting milestones 3. Leukocytosisleukocytosis noted with WBC of 20 this morning. Currently afebrile. We will continue to monitor. Repeat CBC in a.m.
[2021-09-18] MEDS: oxyCODONE 5 MG TABLET PO PRN ×2 (09:53→20:22)
[2021-09-18 10:03] LABS: BASOPHILS % (AUTO) 0.2 %; HCT - HEMATOCRIT 33.6 % (37.0-47.0); HGB - HEMOGLOBIN 11.2 g/dL (12.0-16.0); LYMPHOCYTES % (AUTO) 13.1 %; MEAN CORPUSCULAR HEMOGLOBIN 30.1 pg (27.0-31.0); MEAN CORPUSCULAR HGB CONC 33.3 g/dL (32.0-36.0); MEAN CORPUSCULAR VOLUME 90.3 fL (81.0-99.0); MEAN PLATELET VOLUME 9.8 fL (7.9-10.8); MONOCYTES % (AUTO) 8.8 %; NEUTROPHILS % (AUTO) 76.6 %; PLT - PLATELET COUNT 243 10^3/uL (130-450); RED BLOOD COUNT 3.72 10^6/uL (4.20-5.40); RED CELL DISTRIBUTION WIDTH 13.4 % (12.0-15.0); WHITE BLOOD COUNT 20.8 x10^3/uL (4.8-10.8)
[2021-09-18 10:13] LABS: ABNORMAL LYMPHS % (MANUAL) 0 %; BAND NEUTROPHILS % (MANUAL) 0 %
[2021-09-18 10:16] LABS: ALBUMIN 3.3 g/dL (3.2-5.5); ALBUMIN/GLOBULIN RATIO 1.2 (1.0-2.2); BILIRUBIN,TOTAL 0.6 mg/dL (0.2-1.0); CALCIUM 8.8 mg/dL (8.5-10.3); CREATININE 0.9 mg/dL (0.4-1.0); MAGNESIUM 3.7 mg/dL (1.7-2.8); POTASSIUM 4.8 mmol/L (3.5-5.0); TOTAL PROTEIN 6.1 g/dL (6.7-8.2)
[2021-09-18 10:39] LABS: LYMPHOCYTES # (MANUAL) 1.2 10^3/uL (1.5-3.5); LYMPHOCYTES % (MANUAL) 6 %; METAMYELOCYTES % (MANUAL) 2 %; MONOCYTES # (MANUAL) 2.1 10^3/uL (0.0-1.0); NEUTROPHILS # (MANUAL) 17.1 10^3/uL (1.5-6.6)
[2021-09-18 10:40] LABS: DIFFERENTIAL COMMENT MANUAL DIFFERENTIAL; PLATELET ESTIMATE, MANUAL NORMAL (130-450,000) (NORMAL); PLATELET MORPHOLOGY NORMAL APPEARANCE (NORMAL); RBC MORPHOLOGY (MULTIPLE) NORMAL APPEARANCE (NORMAL); WBC MORPHOLOGY (MULTIPLE) NORMAL APPEARANCE (NORMAL)
[2021-09-18] MEDS: DOCUSATE SODIUM 100 MG CAPSULE PO SCH ×2 (18:19→21:50)
--- NOTE | 2021-09-18 18:39 | PROVIDER PROGRESS NOTE ---
Subjective - Subjective Subjective: Patient has no complaints. She denies headaches vision changes or abdominal pain. Objective - Vital Signs/Intake & Output Vital Signs: Vital Signs x48h Temp Pulse Pulse Resp BP BP Pulse Ox 09/18/21 18:00 84 16 134/79 H 100 09/18/21 17:35 98.1 F 09/18/21 16:58 67 134/99 H 143/80 H 09/18/21 15:30 98.1 F 87 17 133/86 H 100 09/18/21 13:45 98.6 F 75 16 132/89 H 09/18/21 12:22 144/89 H 09/18/21 11:40 133/90 H Intake & Output: Intake & Output 09/15/21 09/16/21 09/17/21 09/18/21 23:59 23:59 23:59 23:59 Intake Total 2154.666 600 Output Total 1521 1810 2946 Balance -1525 344.666 -4516 - Lab Results Fish Bones: 09/18/21 09:56 09/18/21 09:56 Other Labs: Lab Results x24hrs 09/18/21 09/18/21 09/18/21 Range/Units 09:56 09:56 07:17 WBC 20.8 H 18.0 H (4.8-10.8) x10^3/uL RBC 3.72 L 3.57 L (4.20-5.40) 10^6/uL Hgb 11.2 L 10.9 L (12.0-16.0) g/dL Hct 33.6 L 32.4 L (37.0-47.0) % MCV 90.3 90.8 (81.0-99.0) fL MCH 30.1 30.5 (27.0-31.0) pg MCHC 33.3 33.6 (32.0-36.0) g/dL RDW 13.4 13.3 (12.0-15.0) % Plt Count 243 216 (130-450) 10^3/uL MPV 9.8 10.0 (7.9-10.8) fL Neut # (Auto) Not Reportable 14.6 H (1.5-6.6) 10^3/uL Lymph # (Auto) Not Reportable 1.9 (1.5-3.5) 10^3/uL [place] # (Auto) Not Reportable 1.3 H (0.0-1.0) 10^3/uL Eos # (Auto) Not Reportable 0.0 (0.0-0.7) 10^3/uL Baso # (Auto) Not Reportable 0.0 (0.0-0.1) 10^3/uL Absolute Nucleated RBC Not Reportable 0.00 x10^3/uL Total Counted 100 Band Neuts % (Manual) 0 (0 - 10) % Abnorm Lymph % (Manual) 0 % Metamyelocytes % 2 H ( - 0) % Nucleated RBC % Not Reportable 0.0 /100WBC Neutrophils # (Manual) 17.1 H (1.5-6.6) 10^3/uL Lymphocytes # (Manual) 1.2 L (1.5-3.5) 10^3/uL Monocytes # (Manual) 2.1 H (0.0-1.0) 10^3/uL Eosinophils # (Manual) 0.0 (0-0.7) 10^3/uL Basophils # (Manual) 0.0 (0-0.1) 10^3/uL Differential Comment MANUAL DIFFERENTIAL WBC Morphology NORMAL APPEARANCE (NORMAL) Platelet Estimate NORMAL (130-450,000) (NORMAL) Platelet Morphology NORMAL APPEARANCE (NORMAL) RBC Morph Micro Appear NORMAL APPEARANCE (NORMAL) Sodium 137 (135-145) mmol/L Potassium 4.8 (3.5-5.0) mmol/L Chloride 104 (101-111) mmol/L Carbon Dioxide 22 (21-32) mmol/L Anion Gap 11.0 (6-13) BUN 17 (6-20) mg/dL Creatinine 0.9 (0.4-1.0) mg/dL Estimated GFR (MDRD) 79 L (>89) Glucose 97 (70-100) mg/dL Calcium 8.8 (8.5-10.3) mg/dL Magnesium 3.7 H (1.7-2.8) mg/dL Total Bilirubin 0.6 (0.2-1.0) mg/dL AST 27 (10-42) IU/L ALT 22 (10-60) IU/L Alkaline Phosphatase 125 H (42-121) IU/L Total Protein 6.1 L (6.7-8.2) g/dL Albumin 3.3 (3.2-5.5) g/dL Globulin 2.8 (2.1-4.2) g/dL Albumin/Globulin Ratio 1.2 (1.0-2.2) Assessment/Plan - Assessment/Plan Plan: Plan: 21-year-old G1, P1 day 1 status post spontaneous vaginal delivery. 1. Preeclampsia with severe features. Based on severe range blood pressures and symptoms of headache. Magnesium sulfate restarted this morning secondary to severe range blood pressures. Blood pressures are mostly mild range. Repeat prelabs within normal limits. Urine output adequate. Plan for magnesium sulfate for 24 hours for seizure prophylaxis. Reviewed blood pressures and start p.o. antihypertensives if indicated. Anticipate discharge on day 2. 2. Status post vaginal delivery.Fundus below umbilicus, minimal bleeding, meeting milestones 3. Leukocytosisleukocytosis noted with WBC of 20 this morning. Currently afebrile. We will continue to monitor. Repeat CBC in a.m.
[2021-09-18] MEDS ORDERED: PROCHLORPERAZINE 10 MG/2 ML VIAL IVP PRN (21:36)
--- NOTE | 2021-09-18 21:49 | PROVIDER PROGRESS NOTE ---
Subjective - Prog Note Date Prog Note Date: 09/18/21 (Blood pressures reviewed. Will start nifedipine p.o. Continue magnesium sulfate for seizure prophylaxis.) Prog Note Time: 21:48 Objective - Vital Signs/Intake & Output Reviewed Vital Signs: Yes Vital Signs: Vital Signs x48h Temp Pulse Pulse Resp BP BP Pulse Ox 09/18/21 21:00 81 16 143/92 H 97 09/18/21 20:15 85 16 138/94 H 99 09/18/21 19:23 89 14 148/94 H 96 09/18/21 18:00 84 16 134/79 H 100 09/18/21 17:35 98.1 F 09/18/21 16:58 67 134/99 H 143/80 H 09/18/21 15:30 98.1 F 87 17 133/86 H 100 Intake & Output: Intake & Output 09/15/21 09/16/21 09/17/21 09/18/21 23:59 23:59 23:59 23:59 Intake Total 4654.666 1100 Output Total 1525 1810 2946 Balance -1525 2844.666 -1846 - Lab Results Fish Bones: 09/18/21 09:56 09/18/21 09:56 Other Labs: Lab Results x24hrs 09/18/21 09/18/21 09/18/21 Range/Units 09:56 09:56 07:17 WBC 20.8 H 18.0 H (4.8-10.8) x10^3/uL RBC 3.72 L 3.57 L (4.20-5.40) 10^6/uL Hgb 11.2 L 10.9 L (12.0-16.0) g/dL Hct 33.6 L 32.4 L (37.0-47.0) % MCV 90.3 90.8 (81.0-99.0) fL MCH 30.1 30.5 (27.0-31.0) pg MCHC 33.3 33.6 (32.0-36.0) g/dL RDW 13.4 13.3 (12.0-15.0) % Plt Count 243 216 (130-450) 10^3/uL MPV 9.8 10.0 (7.9-10.8) fL Neut # (Auto) Not Reportable 14.6 H (1.5-6.6) 10^3/uL Lymph # (Auto) Not Reportable 1.9 (1.5-3.5) 10^3/uL [place] # (Auto) Not Reportable 1.3 H (0.0-1.0) 10^3/uL Eos # (Auto) Not Reportable 0.0 (0.0-0.7) 10^3/uL Baso # (Auto) Not Reportable 0.0 (0.0-0.1) 10^3/uL Absolute Nucleated RBC Not Reportable 0.00 x10^3/uL Total Counted 100 Band Neuts % (Manual) 0 (0 - 10) % Abnorm Lymph % (Manual) 0 % Metamyelocytes % 2 H ( - 0) % Nucleated RBC % Not Reportable 0.0 /100WBC Neutrophils # (Manual) 17.1 H (1.5-6.6) 10^3/uL Lymphocytes # (Manual) 1.2 L (1.5-3.5) 10^3/uL Monocytes # (Manual) 2.1 H (0.0-1.0) 10^3/uL Eosinophils # (Manual) 0.0 (0-0.7) 10^3/uL Basophils # (Manual) 0.0 (0-0.1) 10^3/uL Differential Comment MANUAL DIFFERENTIAL WBC Morphology NORMAL APPEARANCE (NORMAL) Platelet Estimate NORMAL (130-450,000) (NORMAL) Platelet Morphology NORMAL APPEARANCE (NORMAL) RBC Morph Micro Appear NORMAL APPEARANCE (NORMAL) Sodium 137 (135-145) mmol/L Potassium 4.8 (3.5-5.0) mmol/L Chloride 104 (101-111) mmol/L Carbon Dioxide 22 (21-32) mmol/L Anion Gap 11.0 (6-13) BUN 17 (6-20) mg/dL Creatinine 0.9 (0.4-1.0) mg/dL Estimated GFR (MDRD) 79 L (>89) Glucose 97 (70-100) mg/dL Calcium 8.8 (8.5-10.3) mg/dL Magnesium 3.7 H (1.7-2.8) mg/dL Total Bilirubin 0.6 (0.2-1.0) mg/dL AST 27 (10-42) IU/L ALT 22 (10-60) IU/L Alkaline Phosphatase 125 H (42-121) IU/L Total Protein 6.1 L (6.7-8.2) g/dL Albumin 3.3 (3.2-5.5) g/dL Globulin 2.8 (2.1-4.2) g/dL Albumin/Globulin Ratio 1.2 (1.0-2.2)
[2021-09-18] MEDS: NIFEdipine ER 30 MG TABLET PO SCH (23:24)
[2021-09-19] MEDS: MAGNESIUM SULFATE IN WATER 20 GM/500 ML IV.SOLN IV SCH (04:03)
[2021-09-19] MEDS: LACTATED RINGERS 1,000 ML IV SCH (04:03)
[2021-09-19 06:54] LABS: BASOPHILS # (AUTO) 0.1 10^3/uL (0.0-0.1); BASOPHILS % (AUTO) 0.6 %; EOSINOPHILS # (AUTO) 0.1 10^3/uL (0.0-0.7); EOSINOPHILS % (AUTO) 0.5 %; HCT - HEMATOCRIT 37.1 % (37.0-47.0); HGB - HEMOGLOBIN 12.5 g/dL (12.0-16.0); LYMPHOCYTES # (AUTO) 4.2 10^3/uL (1.5-3.5); MEAN CORPUSCULAR HEMOGLOBIN 30.3 pg (27.0-31.0); MEAN CORPUSCULAR HGB CONC 33.7 g/dL (32.0-36.0); MEAN CORPUSCULAR VOLUME 89.8 fL (81.0-99.0); MEAN PLATELET VOLUME 9.6 fL (7.9-10.8); MONOCYTES # (AUTO) 1.5 10^3/uL (0.0-1.0); MONOCYTES % (AUTO) 8.1 %; NEUTROPHILS % (AUTO) 65.8 %; PLT - PLATELET COUNT 276 10^3/uL (130-450); RED BLOOD COUNT 4.13 10^6/uL (4.20-5.40); RED CELL DISTRIBUTION WIDTH 13.5 % (12.0-15.0); WHITE BLOOD COUNT 18.2 x10^3/uL (4.8-10.8)
[2021-09-19] MEDS: NIFEdipine ER 30 MG TABLET PO SCH (08:13)
[2021-09-19] MEDS: DOCUSATE SODIUM 100 MG CAPSULE PO SCH ×2 (08:13→21:51)
--- NOTE | 2021-09-19 10:03 | Discharge Plan ---
Discharge Plan Problem Reviewed?: Yes Disposition: Home, Self Care Condition: Stable Diet: Regular Activity Restrictions: Pelvic rest for 6 weeks Shower Restrictions: No Driving Restrictions: Yes (while taking narcotics ) Instruction Topics: Preeclampsia, Depression , Vaginal After Additional Instructions or Follow Up instructions: Return to ED for persistent headaches, blood pressures with systolic 160 or above, diastolics 110 or above. Return to ED for right-sided abdominal pain or epigastric pain shortness of breath or chest pain. No Smoking: If you smoke, Please STOP! Call for help. Follow-up with: Miranda Webster MD [Provider Admit Priv/Credential] - 09/22/21 (Preeclampsia with severe features, )
--- NOTE | 2021-09-19 10:18 | DISCHARGE SUMMARY ---
Discharge Summary Admit Date: 09/16/21 Discharge Date: 09/21/21 Discharging Provider: Fe Rowley MD Primary Care Provider: Darin Condition at Discharge: Stable Discharge Disposition: 01 Home, Self Care Discharge Facility Name: [facility] - DIAGNOSES Admission Diagnoses: PReeclampsia with severe features, state Discharge Diagnoses with Status of Each Condition: PReeclampsia with severe features- stable, state- stable - HOSPITAL COURSE Hospital Course: 21-year-old day 3 status post spontaneous vaginal delivery. The patient presented for induction of labor at 36 weeks secondary to preeclampsia with severe features. She received a beta mouth series Methasone series she received a betamethasone series prior to induction. She had an uncomplicated spontaneous vaginal delivery. She received magnesium sulfate during labor and . She met milestones. She was started on p.o. antihypertensives. She was noted to have leukocytosis on day 1. This improved on day 2 and she was afebrile. She was stable for discharge on day 3. Preeclampsia warnings were given and recommendations for follow-up within 72 hours were given. - ALLERGIES Allergies/Adverse Reactions: Allergies Allergy/AdvReac Type Severity Reaction Status Date / Time No Known Drug Allergies Allergy Verified 03/06/21 13:29 - MEDICATIONS Home Medications: Ambulatory Orders Medication Instructions Recorded Confirmed 168/Iron/Folic/Omega3 1 each PO DAILY #30 02/12/21 03/06/21 [One-A-Day -1 Softgel] Metoclopramide [Reglan] 10 mg PO Q6H PRN #20 tablet 03/06/21 NIFEdipine [Procardia Xl] 30 mg PO DAILY #30 tablet 09/19/21 oxyCODONE/ACET 5/325 [Percocet 5 1 each PO Q4-6H #14 tablet 09/19/21 mg/325 mg] - PHYSICAL EXAM AT DISCHARGE General Appearance: positive: No acute distress - LABS Result Diagrams: 09/19/21 06:47 09/18/21 09:56 - FOLLOW UP Follow Up: Follow-up in 48 to 72 hours with OB for blood pressure check.
--- NOTE | 2021-09-19 12:09 | PROVIDER PROGRESS NOTE ---
Subjective - Prog Note Date Prog Note Date: 09/19/21 Prog Note Time: 12:07 - Subjective Subjective: Patient has no complaints. She is now status post magnesium sulfate. Her blood pressures are normal to my range. She denies headaches vision changes or a bdominal pain. She is breast-feeding and producing milk. Baby will remain in house for observation due to weight loss and poor feeding and slightly elevated bilirubin. We will keep patient overnight for blood pressure monitoring. She was started on p.o. antihypertensives. Current Medications - Current Medications Current Medications: Allergies No Known Drug Allergies Allergy (Verified 03/06/21 13:29) Home Medications 168/Iron/Folic/Omega3 [One-A-Day -1 Softgel] 1 each PO DAILY #30 02/12/21 Metoclopramide [Reglan] 10 mg PO Q6H PRN #20 tablet 03/06/21 NIFEdipine [Procardia Xl] 30 mg PO DAILY #30 tablet 09/19/21 oxyCODONE/ACET 5/325 [Percocet 5 mg/325 mg] 1 each PO Q4-6H #14 tablet 09/19/21 Objective - Vital Signs/Intake & Output Vital Signs: Vital Signs x48h Temp Pulse Resp BP Pulse Ox 09/19/21 08:00 139/101 H 09/19/21 07:44 98.5 F 17 129/105 H 100 09/19/21 06:00 86 18 134/92 H 97 09/19/21 05:07 83 14 135/88 H 95 Intake & Output: Intake & Output 09/16/21 09/17/21 09/18/21 09/19/21 23:59 23:59 23:59 23:59 Intake Total 4654.666 1100 1407.500 Output Total 1525 1810 3446 3725 Balance -1525 2844.666 -2346 -2317.500 - Lab Results Fish Bones: 09/19/21 06:47 09/18/21 09:56 Other Labs: Lab Results x24hrs 09/19/21 Range/Units 06:47 WBC 18.2 H (4.8-10.8) x10^3/uL RBC 4.13 L (4.20-5.40) 10^6/uL Hgb 12.5 (12.0-16.0) g/dL Hct 37.1 (37.0-47.0) % MCV 89.8 (81.0-99.0) fL MCH 30.3 (27.0-31.0) pg MCHC 33.7 (32.0-36.0) g/dL RDW 13.5 (12.0-15.0) % Plt Count 276 (130-450) 10^3/uL MPV 9.6 (7.9-10.8) fL Neut # (Auto) 12.0 H (1.5-6.6) 10^3/uL Lymph # (Auto) 4.2 H (1.5-3.5) 10^3/uL [place] # (Auto) 1.5 H (0.0-1.0) 10^3/uL Eos # (Auto) 0.1 (0.0-0.7) 10^3/uL Baso # (Auto) 0.1 (0.0-0.1) 10^3/uL Absolute Nucleated RBC 0.00 x10^3/uL Nucleated RBC % 0.0 /100WBC Assessment/Plan - Problem List (1) Preeclampsia Impression: 21-year-old day 2 status post spontaneous vaginal delivery. The patient presented for induction of labor at 36 weeks secondary to preeclampsia with severe features. She received a beta mouth series Methasone series she received a betamethasone series prior to induction. She had an uncomplicated spontaneous vaginal delivery. She received magnesium sulfate during labor and . She met milestones. She was started on p.o. antihypertensives. She was noted to have leukocytosis on day 1. This improved on day 2 and she was afebrile. Patient will remain in house for blood pressure monitoring following magnesium sulfate.
[2021-09-19] MEDS: ACETAMINOPHEN 500 MG TABLET PO PRN ×2 (15:06→23:41)
[2021-09-19] MEDS: oxyCODONE 5 MG TABLET PO PRN (19:55)
[2021-09-19] MEDS ORDERED: NIFEdipine ER 30 MG TABLET PO SCH (22:30)
[2021-09-20] MEDS: DOCUSATE SODIUM 100 MG CAPSULE PO SCH (08:30)
[2021-09-20] MEDS: NIFEdipine ER 30 MG TABLET PO SCH (08:31)
[2021-09-20 08:43] VITALS: BP 132/89
== END 2021-09-20 11:30 | disposition home or self-care (01) | DRG 807 ==
LOC: WFO 10:54 → FBP 10:57 → WFO 13:50 → FBP 13:51
PROVIDERS: ADMIT Obstetrics & Gynecology; ATTEND Obstetrics & Gynecology
PROC: 3E033VJ Introduction of Other Hormone into Peripheral Vein, Percutaneous Approach (ICD-10-PCS; 2021-09-16)
PROC: 0U7C7ZZ Dilation of Cervix, Via Natural or Artificial Opening (ICD-10-PCS; 2021-09-16)
PROC: 10E0XZZ Delivery of Products of Conception, External Approach (ICD-10-PCS; principal; 2021-09-17)
PROC: 0HQ9XZZ Repair Perineum Skin, External Approach (ICD-10-PCS; 2021-09-17)
DX: O14.14 Severe pre-eclampsia complicating childbirth (principal); Z37.0 Single live birth; Z3A.36 36 weeks gestation of pregnancy; O32.6XX0 Maternal care for compound presentation, not applicable or unspecified; O70.0 First degree perineal laceration during delivery; O75.89 Other specified complications of labor and delivery; D72.829 Elevated white blood cell count, unspecified; Z79.899 Other long term (current) drug therapy
CPT/HCPCS: 36415; 76816; 80053; 82570; 83735; 84156; 85025; 86850; 86900; 86901; 99215; A9270; J2300; J7120; J3475